=== PATIENT | female | born 1985 | race Caucasian/White ===

== ENCOUNTER → 2016-12-22 | Outpatient (CLI) | payer OTHER ==
--- NOTE | 2016-12-22 16:12 | US ---
EXAMINATION TYPE: US transvaginal DATE OF EXAM: 12/22/2016 COMPARISON: NONE CLINICAL HISTORY: Pelvic Pain R10.2. gen pelvic pain, no cycles, on depo inj, prior ct section TECHNIQUE: Transabdominal (TA) Date of LMP: not for long time EXAM MEASUREMENTS: Uterus: 4.7 x 2.8 x 4.6 cm Endometrial Stripe: 0.4 cm Right Ovary: 1.4 x 0.8 x 1.5 cm Left Ovary: 2.1 x 0.8 x 1.1 cm 1. Uterus: small in size, otherwise wnl 2. Endometrium: seen with some fluid and debris, not thickened 3. Right Ovary: wnl 4. Left Ovary: wnl 5. Bilateral Adnexa: wnl 6. Posterior cul-de-sac: no free fluid seen IMPRESSION: 1. Hypoechoic collection within the endometrial canal could represent some blood. 2. Follicle on the left ovary.
== END | disposition home or self-care (01) ==
LOC: RADUSWWP 12:14
PROVIDERS: ATTEND Obstetrics & Gynecology
DX: N83.8 Other noninflammatory disorders of ovary, fallopian tube and broad ligament (principal); R10.2 Pelvic and perineal pain
CPT/HCPCS: 76830

== ENCOUNTER → 2017-04-09 | Outpatient (CLI) | payer OTHER | END | disposition home or self-care (01) | LOC: LABWHC1 10:49 | PROVIDERS: ATTEND Obstetrics & Gynecology | DX: N91.2 Amenorrhea, unspecified (principal) | CPT/HCPCS: 36415; 84702 ==

== ENCOUNTER → 2017-10-17 | Outpatient (CLI) | payer OTHER | END | disposition home or self-care (01) | LOC: LABWHC1 12:08 | PROVIDERS: ATTEND Obstetrics & Gynecology | DX: N92.6 Irregular menstruation, unspecified (principal) | CPT/HCPCS: 36415; 84702 ==

== ENCOUNTER → 2018-08-01 | Outpatient (CLI) | payer OTHER ==
[2018-08-01 10:00] LABS: Basophils # (A) 0.1 k/uL (0-0.2); Basophils % (A) 1 %; Eosinophils # (A) 0.3 k/uL (0-0.7); Eosinophils % (A) 2 %; HCT 42.7 % (34.0-46.0); Lymphocytes # (A) 3.8 k/uL (1.0-4.8); Lymphocytes % (A) 26 %; MCH 31.5 pg (25.0-35.0); MCHC 32.9 g/dL (31.0-37.0); Mean Platelet Volume 6.8; Monocytes % (A) 7 %; Neutrophils # (A) 9.1 k/uL (1.3-7.7); Neutrophils % (A) 63 %; Platelet Count 294 k/uL (150-450); RBC 4.45 m/uL (3.80-5.40); RDW 13.7 % (11.5-15.5); WBC 14.5 k/uL (3.8-10.6)
== END ==
LOC: LABPAT 09:29
PROVIDERS: ATTEND Obstetrics & Gynecology
DX: Z01.812 Encounter for preprocedural laboratory examination (principal)
CPT/HCPCS: 36415; 85025

== ENCOUNTER 2018-08-05 06:44 | Day surgery (SDC) | payer OTHER ==
[2018-08-01 08:32] VITALS: BMI 26.3
[~2018-08-05 06:44] MED LIST: DEXAMETHASONE SOD PHOSPHATE 10 MG/ML 1 ML VIAL IV ONE; LIDOCAINE 1% 20 ML VIAL (10MG/ML) FOR IV START INTRADERMA PRN; MIDAZOLAM (PF) 2 MG/2 ML VIAL IV PRN; Pre Op ABX Message 1 EACH MISC MISCELLANE ONE; fentaNYL (PF) 50 MCG/ML 2 ML AMP IV PRN
[2018-08-05] MEDS ORDERED: LACTATED RINGERS 1,000 ML IV ONE (07:15)
[2018-08-05] MEDS: ONDANSETRON 4 MG/2 ML VIAL IVP ONE ×2 (07:16→08:57)
--- NOTE | 2018-08-05 07:46 | P.HPOB ---
History of Present Illness H&P Date: 08/05/18 Chief Complaint: family planning 33 year old presents for laparoscopic tubal ligation. Review of Systems All systems: negative Constitutional: Denies chills, Denies fever Eyes: denies blurred vision, denies pain Ears, nose, mouth and throat: Denies headache, Denies sore throat Cardiovascular: Denies chest pain, Denies shortness of breath Respiratory: Denies cough Gastrointestinal: Denies abdominal pain, Denies diarrhea, Denies nausea, Denies vomiting Genitourinary: Denies dysuria, Denies hematuria Musculoskeletal: Denies myalgias Integumentary: Denies pruritus, Denies rash Neurological: Denies numbness, Denies weakness Psychiatric: Denies anxiety, Denies depression Endocrine: Denies fatigue, Denies weight change Past Medical History Past Medical History: Asthma, GERD/Reflux, Seizure Disorder Additional Past Medical History / Comment(s): VOMITING W/ BURNING IN CHEST intermittently, CEREBRAL PALSY, LAST SEIZURE 2015. History of Any Multi-Drug Resistant Organisms: None Reported Past Surgical History: Section, Cholecystectomy, Hernia Repair Additional Past Surgical History / Comment(s): HERNIA X2 Past Anesthesia/Blood Transfusion Reactions: Previous Problems w/ Anesthesia Additional Past Anesthesia/Blood Transfusion Reaction / Comment(s): TAKES AWHILE TO AWAKEN FROM ANESTHESIA,no hx blood transfusion Smoking Status: Current every day smoker - Past Family History Mother Family Medical History: Cancer Additional Family Medical History / Comment(s): BREAST x2 Medications and Allergies Home Medications Medication Instructions Recorded Confirmed Type Citalopram Hydrobromide 40 mg PO HS 08/31/17 08/01/18 History [Citalopram HBr] Folic Acid 1 mg PO DAILY 08/31/17 08/01/18 History Topiramate [Topamax] 50 mg PO QAM 08/31/17 08/01/18 History Topiramate [Topamax] 75 mg PO HS 08/31/17 08/01/18 History Allergies Allergy/AdvReac Type Severity Reaction Status Date / Time codeine AdvReac "GOES Verified 08/01/18 08:24 CRAZY" Exam Osteopathic Statement: *. No significant issues noted on an osteopathic structural exam other than those noted in the History and Physical/Consult. Vital Signs Temp Pulse Resp BP Pulse Ox 05/06/19 07:00 98.0 F 80 18 94/59 96 HEart: RRR Lungs: CTAB Abdomen: soft, nontender Extremeties: neg cory's Assessment and Plan (1) Family planning Current Visit: Yes Status: Acute Code(s): Z30.09 - ENCOUNTER FOR OTH GENERAL CNSL AND ADVICE ON CONTRACEPTION SNOMED Code(s): 996334116
[2018-08-05] MEDS ORDERED: SUCCINYLCHOLINE CHLORIDE 100 MG/5 ML SYR IV ONE (07:57)
[2018-08-05] MEDS ORDERED: fentaNYL (PF) 50 MCG/ML 2 ML AMP ONE (07:57)
[2018-08-05] MEDS ORDERED: KETOROLAC 30 MG/ML 1 ML VIAL ONE (07:57)
[2018-08-05] MEDS ORDERED: PROPOFOL 10 MG/ML 20 ML VIAL IV ONE (07:57)
[2018-08-05] MEDS ORDERED: LIDOCAINE 1% INJ 10MG/ML (20 ML MDV) ONE (07:57)
[2018-08-05] MEDS ORDERED: ROCURONIUM BROMIDE 10 MG/ML 10 ML VIAL IV ONE (07:57)
[2018-08-05] MEDS ORDERED: MIDAZOLAM 2 MG/2 ML VIAL ONE (07:57)
[2018-08-05] MEDS ORDERED: ROPIVACAINE 5 MG/ML 30 ML VIAL MISCELLANE ONE ×2 (08:19)
--- NOTE | 2018-08-05 08:37 | P.OP ---
Date of Procedure: 08/05/18 Preoperative Diagnosis: 1. Family planning Postoperative Diagnosis: 1. Family planning Procedure(s) Performed: Laparoscopic tubal ligation Anesthesia: LC Surgeon: Heavenly Wagner Estimated Blood Loss (ml): 3 IV fluids (ml): 300 Urine output (ml): 20 Pathology: none sent Condition: stable Disposition: PACU Operative Findings: Normal uterus, tubes, ovaries. The uterus is quite malleable. Description of Procedure: Patient was taken to the operating room where general anesthesia was obtained without difficulty. She was prepped and draped in normal sterile fashion in the dorsal lithotomy position, legs placed in the Braydon stirrups. Bladder drained of all urine. Abercrombie speculum placed in the vagina and the anterior lip the cervix was grasped with single-tooth tenaculum. The uterus is sounded to 7 cm and the kroner manipulator was placed. Attention was then turned to the abdomen and gloves were changed. A 10 mm infraumbilical incision was made the scalpel and 10 mm optical trocar was placed under direct visualization. A 5 mm suprapubic Incision was made and a 5 mm optical trocar was placed under direct visualization. Survey of the pelvis revealed normal uterus tubes and ovaries. The left fallopian tube was grasped with a Kleppinger and fulgurated 2-3 cm on this side in the ampullar portion. The right fallopian tube was grasped with a Kleppinger and fulgurated 2-3 cm in the ampullar portion. All instruments were then removed from the abdomen and vagina. The 10 mm infraumbilical incision was closed with 0 Vicryl and the fascial layer and then 4-0 Vicryl in a subcuticular fashion. The 5 mm incision was closed with 4-0 Vicryl in a subcuticular fashion. Patient tolerated procedure well, sponge and instrument counts correct 2 and she was taken to recovery room in stable condition.
[2018-08-05 08:55] VITALS: RESP 16; TEMP 96.9
[2018-08-05] MEDS: LACTATED RINGERS 1,000 ML IV SCH ×3 (09:01→09:18)
[2018-08-05 09:53] VITALS: BP 96/63; PULSE 86
== END 2018-08-05 10:15 | disposition home or self-care (01) ==
LOC: OR 06:44 → EEVIPCON 08:00 → OR 10:15
PROVIDERS: ATTEND Obstetrics & Gynecology
DX: Z30.2 Encounter for sterilization (principal); J45.909 Unspecified asthma, uncomplicated; K21.9 Gastro-esophageal reflux disease without esophagitis; G40.909 Epilepsy, unspecified, not intractable, without status epilepticus; G80.9 Cerebral palsy, unspecified; F17.210 Nicotine dependence, cigarettes, uncomplicated; Z90.49 Acquired absence of other specified parts of digestive tract; Z79.899 Other long term (current) drug therapy; Z88.5 Allergy status to narcotic agent
CPT/HCPCS: 81025; 84703; 58670; J2250; J1100; J2405; J2001; J3010; J1885; J2795; J0330; J2704

== ENCOUNTER 2018-10-17 17:24 | Emergency (ER) | payer OTHER ==
[2018-10-17] MEDS ORDERED: SODIUM CHLORIDE 0.9% 1,000 ML IV STA (19:01)
--- NOTE | 2018-10-17 19:09 | ED ---
Abdominal Pain HPI - General Chief Complaint: Abdominal Pain Stated Complaint: abd pain Time Seen by Provider: 10/17/18 19:00 Source: patient, RN notes reviewed, old records reviewed Mode of arrival: ambulatory Limitations: no limitations - History of Present Illness Initial Comments: This is a 33-year-old female the ER for evaluation. Patient resents today for evaluation of abdominal pain. Epigastric and diffuse abdominal pain and cramping. Mild nausea no vomiting. No fevers. No diarrhea. Does have history of . No significant medical history MD Complaint: abdominal pain -: days(s) Location: diffuse, periumbilical, epigastric Radiation: epigastric, suprapubic Severity: mild Severity scale (1-10): 2 Quality: cramping Improves With: nothing Worsens With: nothing Associated Symptoms: nausea - Related Data Home Medications Medication Instructions Recorded Confirmed Citalopram Hydrobromide 40 mg PO HS 08/31/17 10/17/18 [Citalopram HBr] Folic Acid 1 mg PO DAILY 08/31/17 10/17/18 Topiramate [Topamax] 50 mg PO QAM 08/31/17 10/17/18 Topiramate [Topamax] 75 mg PO HS 08/31/17 10/17/18 Allergies Allergy/AdvReac Type Severity Reaction Status Date / Time codeine AdvReac "GOES Verified 10/17/18 20:22 CRAZY" Review of Systems ROS Statement: Those systems with pertinent positive or pertinent negative responses have been documented in the HPI. ROS Other: All systems not noted in ROS Statement are negative. Past Medical History Past Medical History: Asthma, GERD/Reflux, Seizure Disorder Additional Past Medical History / Comment(s): VOMITING W/ BURNING IN CHEST intermittently, CEREBRAL PALSY, LAST SEIZURE 2015. History of Any Multi-Drug Resistant Organisms: None Reported Past Surgical History: Section, Cholecystectomy, Hernia Repair Additional Past Surgical History / Comment(s): HERNIA X2 Past Anesthesia/Blood Transfusion Reactions: Previous Problems w/ Anesthesia Additional Past Anesthesia/Blood Transfusion Reaction / Comment(s): TAKES AWHILE TO AWAKEN FROM ANESTHESIA,no hx blood transfusion Past Psychological History: Anxiety, Depression Smoking Status: Current every day smoker - Past Family History Mother Family Medical History: Cancer Additional Family Medical History / Comment(s): BREAST x2 General Exam Limitations: no limitations General appearance: alert, in no apparent distress Head exam: Present: atraumatic, normocephalic, normal inspection Eye exam: Present: normal appearance, PERRL, EOMI. Absent: scleral icterus, conjunctival injection, periorbital swelling ENT exam: Present: normal exam, mucous membranes moist Neck exam: Present: normal inspection. Absent: tenderness, meningismus, lymphadenopathy Respiratory exam: Present: normal lung sounds bilaterally. Absent: respiratory distress, wheezes, rales, rhonchi, stridor Cardiovascular Exam: Present: regular rate, normal rhythm, normal heart sounds. Absent: systolic murmur, diastolic murmur, rubs, gallop, clicks GI/Abdominal exam: Present: soft, normal bowel sounds. Absent: distended, tenderness, guarding, rebound, rigid Extremities exam: Present: normal inspection, full ROM, normal capillary refill. Absent: tenderness, pedal edema, joint swelling, calf tenderness Back exam: Present: normal inspection Neurological exam: Present: alert, oriented X3, CN II-XII intact Psychiatric exam: Present: normal affect, normal mood Skin exam: Present: warm, dry, intact, normal color. Absent: rash Course Vital Signs 10/17/18 10/17/18 17:47 20:44 Temperature 98.4 F 97.8 F Pulse Rate 83 88 Respiratory 18 12 Rate Blood Pressure 105/71 122/74 O2 Sat by Pulse 98 96 Oximetry - Reevaluation(s) Reevaluation #1: Medical records reviewed Pain is controlled Medical Decision Making - Medical Decision Making 33 female the ER with nonspecific abdominal pain. CT of abdomen pelvis labwork are normal. Patient can be discharged home - Lab Data Result diagrams: 10/17/18 19:21 10/17/18 19:21 Lab Results 10/17/18 10/17/18 10/17/18 Range/Units 19:21 19:21 19:21 WBC 13.7 H (3.8-10.6) k/uL RBC 4.54 (3.80-5.40) m/uL Hgb 13.4 (11.4-16.0) gm/dL Hct 41.7 (34.0-46.0) % MCV 91.8 (80.0-100.0) fL MCH 29.6 (25.0-35.0) pg MCHC 32.2 (31.0-37.0) g/dL RDW 13.5 (11.5-15.5) % Plt Count 295 (150-450) k/uL Neutrophils % 53 % Lymphocytes % 35 % Monocytes % 6 % Eosinophils % 2 % Basophils % 1 % Neutrophils # 7.3 (1.3-7.7) k/uL Lymphocytes # 4.8 (1.0-4.8) k/uL Monocytes # 0.8 (0-1.0) k/uL Eosinophils # 0.3 (0-0.7) k/uL Basophils # 0.1 (0-0.2) k/uL Sodium 139 (137-145) mmol/L Potassium 3.6 (3.5-5.1) mmol/L Chloride 113 H (98-107) mmol/L Carbon Dioxide 20 L (22-30) mmol/L Anion Gap 6 mmol/L BUN 9 (7-17) mg/dL Creatinine 0.98 (0.52-1.04) mg/dL Est GFR (CKD-EPI)AfAm 87 (>60 ml/min/1.73 sqM) Est GFR (CKD-EPI)NonAf 76 (>60 ml/min/1.73 sqM) Glucose 83 (74-99) mg/dL Plasma Lactic Acid Josef (0.7-2.0) mmol/L Calcium 9.8 (8.4-10.2) mg/dL Total Bilirubin 0.6 (0.2-1.3) mg/dL AST 16 (14-36) U/L ALT 15 (9-52) U/L Alkaline Phosphatase 61 (38-126) U/L Total Protein 7.2 (6.3-8.2) g/dL Albumin 4.3 (3.5-5.0) g/dL Amylase 82 (30-110) U/L Lipase 109 (23-300) U/L Urine Color Urine Appearance (Clear) Urine pH (5.0-8.0) Ur Specific [place] (1.001-1.035) Urine Protein (Negative) Urine Glucose (UA) (Negative) Urine Ketones (Negative) Urine Blood (Negative) Urine Nitrite (Negative) Urine Bilirubin (Negative) Urine Urobilinogen (<2.0) mg/dL Ur Leukocyte Esterase (Negative) Urine RBC (0-5) /hpf Urine WBC (0-5) /hpf Ur Squamous Epith Cells (0-4) /hpf Urine Mucus (None) /hpf Urine HCG, Qual Not Detected (Not Detectd) 10/17/18 10/17/18 Range/Units 19:21 19:21 WBC (3.8-10.6) k/uL RBC (3.80-5.40) m/uL Hgb (11.4-16.0) gm/dL Hct (34.0-46.0) % MCV (80.0-100.0) fL MCH (25.0-35.0) pg MCHC (31.0-37.0) g/dL RDW (11.5-15.5) % Plt Count (150-450) k/uL Neutrophils % % Lymphocytes % % Monocytes % % Eosinophils % % Basophils % % Neutrophils # (1.3-7.7) k/uL Lymphocytes # (1.0-4.8) k/uL Monocytes # (0-1.0) k/uL Eosinophils # (0-0.7) k/uL Basophils # (0-0.2) k/uL Sodium (137-145) mmol/L Potassium (3.5-5.1) mmol/L Chloride (98-107) mmol/L Carbon Dioxide (22-30) mmol/L Anion Gap mmol/L BUN (7-17) mg/dL Creatinine (0.52-1.04) mg/dL Est GFR (CKD-EPI)AfAm (>60 ml/min/1.73 sqM) Est GFR (CKD-EPI)NonAf (>60 ml/min/1.73 sqM) Glucose (74-99) mg/dL Plasma Lactic Acid Josef 0.8 (0.7-2.0) mmol/L Calcium (8.4-10.2) mg/dL Total Bilirubin (0.2-1.3) mg/dL AST (14-36) U/L ALT (9-52) U/L Alkaline Phosphatase (38-126) U/L Total Protein (6.3-8.2) g/dL Albumin (3.5-5.0) g/dL Amylase (30-110) U/L Lipase (23-300) U/L Urine Color Light Yellow Urine Appearance Clear (Clear) Urine pH 5.5 (5.0-8.0) Ur Specific [place] 1.005 (1.001-1.035) Urine Protein Negative (Negative) Urine Glucose (UA) Negative (Negative) Urine Ketones Negative (Negative) Urine Blood Small H (Negative) Urine Nitrite Negative (Negative) Urine Bilirubin Negative (Negative) Urine Urobilinogen <2.0 (<2.0) mg/dL Ur Leukocyte Esterase Negative (Negative) Urine RBC 1 (0-5) /hpf Urine WBC 1 (0-5) /hpf Ur Squamous Epith Cells 3 (0-4) /hpf Urine Mucus Rare H (None) /hpf Urine HCG, Qual (Not Detectd) - Radiology Data Radiology results: report reviewed (CT abdomen pelvis is negative for acute dise ase), image reviewed Disposition Clinical Impression: Abdominal pain Disposition: HOME SELF-CARE Condition: Good Instructions (If sedation given, give patient instructions): Abdominal Pain (ED) Is patient prescribed a controlled substance at d/c from ED?: No Referrals: Rich Larose MD [Primary Care Provider] - 1-2 days
[2018-10-17 19:31] LABS: Basophils # (A) 0.1 k/uL (0-0.2); Basophils % (A) 1 %; Eosinophils # (A) 0.3 k/uL (0-0.7); Eosinophils % (A) 2 %; HCT 41.7 % (34.0-46.0); HGB 13.4 gm/dL (11.4-16.0); Lymphocytes # (A) 4.8 k/uL (1.0-4.8); Lymphocytes % (A) 35 %; MCH 29.6 pg (25.0-35.0); MCHC 32.2 g/dL (31.0-37.0); MCV 91.8 fL (80.0-100.0); Mean Platelet Volume 6.5; Monocytes # (A) 0.8 k/uL (0-1.0); Monocytes % (A) 6 %; Neutrophils # (A) 7.3 k/uL (1.3-7.7); Neutrophils % (A) 53 %; Platelet Count 295 k/uL (150-450); RBC 4.54 m/uL (3.80-5.40); RDW 13.5 % (11.5-15.5); WBC 13.7 k/uL (3.8-10.6)
[2018-10-17 19:35] LABS: Color,Urine Light Yellow
[2018-10-17 19:36] LABS: Appearance,Urine Clear (Clear); Bilirubin,Urine Negative (Negative); Blood,Urine Small (Negative); Glucose,Urine (UA) Negative (Negative); Ketones,Urine Negative (Negative); Leukocyte Esterase,Urine Negative (Negative); Mucus,Urine Rare /hpf; Nitrite,Urine Negative (Negative); PH, Urine 5.5 (5.0-8.0); Protein,Urine Negative (Negative); RBC,Urine 1 /hpf (0-5); Specific Gravity,Urine 1.005 (1.001-1.035); Squamous Epithelial Cell,Urine 3 /hpf (0-4); Urobilinogen,Urine <2.0 mg/dL (<2.0); WBC,Urine 1 /hpf (0-5)
[2018-10-17 19:44] LABS: Albumin 4.3 g/dL (3.5-5.0); Calcium 9.8 mg/dL (8.4-10.2); Potassium 3.6 mmol/L (3.5-5.1); Total Bilirubin 0.6 mg/dL (0.2-1.3); Total Protein 7.2 g/dL (6.3-8.2)
--- NOTE | 2018-10-17 20:18 | CT ---
EXAMINATION TYPE: CT abdomen pelvis wo con DATE OF EXAM: 10/17/2018 COMPARISON: None HISTORY: Abdominal pain and nausea CT DLP: 360.5 mGycm Automated exposure control for dose reduction was used. TECHNIQUE: Helical acquisition of images was performed from the lung bases through the pelvis. FINDINGS: Lung bases are clear. There is no pleural effusion. Heart size is normal. There is no pericardial eff usion. Liver appears normal. Bile ducts are not dilated. Stomach appears normal. Spleen is absent. There are clips from cholecystectomy. There is no pancreatic mass. There is no adrenal mass. Kidneys show satisfactory contrast opacification. There is no hydronephrosi s. Ureters are not dilated. Bladder distends smoothly. There is no inguinal hernia. There is no evide nce of a pelvic mass. Uterus is retroverted. There is no free fluid in the pelvis. There is no mesent nicki edema. There is no sign of a bowel obstruction. Appendix is not definitely seen. There is no sig n of thickened appendix. There is no evidence of bowel obstruction. There is no ascites or free air. Lumbar vertebra have normal spacing and alignment. Posterior elements are intact. Bony pelvis appears intact. IMPRESSION: NEGATIVE CT SCAN ABDOMEN AND PELVIS.
[2018-10-17 20:45] VITALS: BP 122/74; PULSE 88; RESP 12; TEMP 97.8
== END 2018-10-17 20:56 | disposition home or self-care (01) ==
LOC: EC 17:24
DX: R10.84 Generalized abdominal pain (principal); R11.0 Nausea; G40.909 Epilepsy, unspecified, not intractable, without status epilepticus; F32.9 Major depressive disorder, single episode, unspecified; F41.9 Anxiety disorder, unspecified; F17.200 Nicotine dependence, unspecified, uncomplicated; Z79.899 Other long term (current) drug therapy; Z88.5 Allergy status to narcotic agent; Z90.49 Acquired absence of other specified parts of digestive tract
CPT/HCPCS: 36415; 74176; 80053; 81001; 81025; 82150; 83605; 83690; 85025; 87086; 96360; 99284

== ENCOUNTER 2018-11-05 19:43 | Emergency (ER) | payer OTHER ==
[2018-11-05] MEDS ORDERED: SODIUM CHLORIDE 0.9% 500 ML 500 ML IV STA (20:49)
[2018-11-05 21:12] LABS: ALT 11 U/L (9-52); AST 12 U/L (14-36); African American GFR (CKD) >90 (>60 ml/min/1.73 sqM); Albumin 3.6 g/dL (3.5-5.0); Alkaline Phosphatase 54 U/L (38-126); Amylase 67 U/L (30-110); Anion Gap 8 mmol/L; Blood Urea Nitrogen 11 mg/dL (7-17); Calcium 9.1 mg/dL (8.4-10.2); Carbon Dioxide 20 mmol/L (22-30); Chloride 112 mmol/L (98-107); Glucose 113 mg/dL (74-99); Potassium 3.5 mmol/L (3.5-5.1); Sodium 140 mmol/L (137-145); Total Bilirubin 0.5 mg/dL (0.2-1.3); Total Protein 6.3 g/dL (6.3-8.2)
[2018-11-05 21:21] LABS: Appearance,Urine Cloudy (Clear); Bilirubin,Urine Negative (Negative); Blood,Urine Moderate (Negative); Calcium Oxalate Crystals,Urine Rare /hpf; Color,Urine Yellow; Glucose,Urine (UA) Negative (Negative); Ketones,Urine Trace (Negative); Leukocyte Esterase,Urine Negative (Negative); Mucus,Urine Moderate /hpf; Nitrite,Urine Negative (Negative); Protein,Urine Trace (Negative); RBC,Urine 17 /hpf (0-5); Specific Gravity,Urine 1.028 (1.001-1.035); Squamous Epithelial Cell,Urine 9 /hpf (0-4); WBC,Urine 2 /hpf (0-5)
[2018-11-05 21:22] LABS: Basophils # (A) 0.1 k/uL (0-0.2); Basophils % (A) 0 %; Eosinophils # (A) 0.2 k/uL (0-0.7); Eosinophils % (A) 1 %; HGB 12.9 gm/dL (11.4-16.0); Lymphocytes # (A) 2.6 k/uL (1.0-4.8); Lymphocytes % (A) 11 %; MCH 31.2 pg (25.0-35.0); MCHC 33.2 g/dL (31.0-37.0); Mean Platelet Volume 7.3; Monocytes # (A) 1.4 k/uL (0-1.0); Monocytes % (A) 6 %; Neutrophils # (A) 18.8 k/uL (1.3-7.7); Neutrophils % (A) 81 %; Platelet Count 278 k/uL (150-450); RBC 4.14 m/uL (3.80-5.40); RDW 14.9 % (11.5-15.5); WBC 23.4 k/uL (3.8-10.6)
--- NOTE | 2018-11-05 22:18 | CT ---
EXAMINATION TYPE: CT abdomen pelvis w con DATE OF EXAM: 11/05/2018 COMPARISON: 10/17/2018 HISTORY: abdominal pain and nausea CT DLP: 581.4 mGycm Automated exposure control for dose reduction was used. TECHNIQUE: Helical acquisition of images was performed from the lung bases through the pelvis. CONTRAST: Performed without Oral Contrast and with IV Contrast, patient injected with 100 mL of Isovu e 300. FINDINGS: LUNG BASES: No significant abnormality is appreciated. LIVER/GB: No significant abnormality is appreciated. PANCREAS: No significant abnormality is seen. SPLEEN: No significant abnormality is seen. ADRENALS: No significant abnormality is seen. KIDNEYS: No significant abnormality is seen. FREE AIR: No free air is visualized. RETROPERITONEAL ADENOPATHY: None visualized REPRODUCTIVE ORGANS: No significant abnormality is seen URINARY BLADDER: No significant abnormality is seen. PELVIC ADENOPATHY: None visualized. OSSEOUS STRUCTURES: No significant abnormality is seen. BOWEL: No significant abnormality is seen. OTHER: No acute vascular findings. IMPRESSION: NO ACUTE PROCESS.
[2018-11-05] MEDS ORDERED: KETOROLAC 30 MG/ML 1 ML VIAL IVP STA (22:39)
[2018-11-05] MEDS ORDERED: SODIUM CHLORIDE 0.9% 1,000 ML IV STA (22:57)
[2018-11-06 00:14] VITALS: BP 113/77
--- NOTE | 2018-11-06 00:19 | ED ---
General Adult HPI - General Chief complaint: Abdominal Pain Stated complaint: Back pain, nausea, abd pain Time Seen by Provider: 11/05/18 19:53 Source: patient, RN notes reviewed Mode of arrival: ambulatory Limitations: no limitations - History of Present Illness Initial comments: 33-year-old female presents to the emergency department for multiple complaints. Patient's main complaint is abdominal pain. States she has had right lower abdominal pain for about 3 days. Patient describes this as wrapping around her right side as well. States that she is having nausea with this for the past 2 days but no vomiting. States that today she started having about 2 episodes of diarrhea. Patient states she had a 100.3 fever at home. Denies any vaginal discharge. Denies any dysuria. Denies any concern for STDs. Patient has no other complaints at this time including shortness of breath, chest pain, nausea or vomiting, headache, or visual changes. - Related Data Home Medications Medication Instructions Recorded Confirmed Citalopram Hydrobromide 40 mg PO HS 08/31/17 11/05/18 [Citalopram HBr] Folic Acid 1 mg PO DAILY 08/31/17 11/05/18 Topiramate [Topamax] 50 mg PO QAM 08/31/17 11/05/18 Topiramate [Topamax] 75 mg PO HS 08/31/17 11/05/18 Previous Rx's Medication Instructions Recorded Ondansetron [Zofran ODT] 4 mg PO Q8HR PRN #15 tab 11/06/18 Allergies Allergy/AdvReac Type Severity Reaction Status Date / Time codeine AdvReac "GOES Verified 11/05/18 20:21 CRAZY" Review of Systems ROS Statement: Those systems with pertinent positive or pertinent negative responses have been documented in the HPI. ROS Other: All systems not noted in ROS Statement are negative. Past Medical History Past Medical History: Asthma, GERD/Reflux, Seizure Disorder Additional Past Medical History / Comment(s): VOMITING W/ BURNING IN CHEST intermittently, CEREBRAL PALSY, LAST SEIZURE 2016. History of Any Multi-Drug Resistant Organisms: None Reported Past Surgical History: Section, Cholecystectomy, Hernia Repair Additional Past Surgical History / Comment(s): HERNIA X2 Past Anesthesia/Blood Transfusion Reactions: Previous Problems w/ Anesthesia Additional Past Anesthesia/Blood Transfusion Reaction / Comment(s): TAKES AWHILE TO AWAKEN FROM ANESTHESIA,no hx blood transfusion Past Psychological History: Anxiety, Depression Smoking Status: Current every day smoker Past Alcohol Use History: None Reported Past Drug Use History: None Reported - Past Family History Mother Family Medical History: Cancer Additional Family Medical History / Comment(s): BREAST x2 General Exam Limitations: no limitations General appearance: alert, in no apparent distress Head exam: Present: atraumatic, normocephalic, normal inspection Eye exam: Present: normal appearance, PERRL, EOMI. Absent: scleral icterus, conjunctival injection, periorbital swelling ENT exam: Present: normal exam, mucous membranes moist Neck exam: Present: normal inspection, full ROM. Absent: tenderness, meningismus, lymphadenopathy Respiratory exam: Present: normal lung sounds bilaterally. Absent: respiratory distress, wheezes, rales, rhonchi, stridor Cardiovascular Exam: Present: regular rate, normal rhythm, normal heart sounds. Absent: systolic murmur, diastolic murmur, rubs, gallop, clicks GI/Abdominal exam: Present: soft, tenderness (Right lower quadrant tenderness and suprapubic tenderness, no guarding, no left abdominal tenderness.), normal bowel sounds. Absent: distended, guarding, rebound, rigid External exam: Present: normal external exam. Absent: erythema, swelling, lesions, lacerations, ecchymosis Speculum exam: Present: normal speculum exam. Absent: erythema, vaginal discharge, cervical discharge, vaginal bleeding, foreign body, tissue, laceration By manual exam: Present: normal by manual exam. Absent: cervical motion tenderness, adnexal tenderness, adnexal mass, uterine enlargement, uterine tenderness Back exam: Absent: CVA tenderness (R), CVA tenderness (L) Neurological exam: Present: alert Psychiatric exam: Present: normal affect, normal mood Course Vital Signs 11/05/18 11/05/18 11/05/18 19:45 20:35 21:10 Temperature 99.0 F Pulse Rate 109 H Respiratory 18 18 17 Rate Blood Pressure 97/66 82/48 87/55 O2 Sat by Pulse 95 95 97 Oximetry 11/06/18 11/06/18 00:14 00:20 Temperature 98.9 F Pulse Rate 73 Respiratory 18 Rate Blood Pressure 113/77 O2 Sat by Pulse 99 Oximetry Medical Decision Making - Medical Decision Making Mucosa 33 old female presents for abdominal pain 3 days. Patient was previously seen for similar complaints and had a negative CAT scan. Vitals stable presentation. On exam patient is well-appearing. She does have right lower quadrant tenderness without any guarding. Pelvic exam is unremarkable. No cervical motion tenderness. CBC does show a white count of 23. CMP unremarkable. Urine does not show any evidence of infection. Trichomonas is negative. CT abdomen and pelvis with contrast shows no acute process. Patient likely has a viral gastroenteritis given nausea and diarrhea. Leukocytosis is likely secondary to this. Patient was hypotensive was given fluids which did normalize her blood pressure. Patient requesting discharge. She is well- appearing at this time. It pain is improved. She'll be discharged home. She is to follow-up with primary care. Strict return parameters given. - Lab Data Result diagrams: 11/05/18 20:31 11/05/18 20:31 Lab Results 11/05/18 11/05/18 11/05/18 Range/Units 20:23 20:23 20:23 WBC (3.8-10.6) k/uL RBC (3.80-5.40) m/uL Hgb (11.4-16.0) gm/dL Hct (34.0-46.0) % MCV (80.0-100.0) fL MCH (25.0-35.0) pg MCHC (31.0-37.0) g/dL RDW (11.5-15.5) % Plt Count (150-450) k/uL Neutrophils % % Lymphocytes % % Monocytes % % Eosinophils % % Basophils % % Neutrophils # (1.3-7.7) k/uL Lymphocytes # (1.0-4.8) k/uL Monocytes # (0-1.0) k/uL Eosinophils # (0-0.7) k/uL Basophils # (0-0.2) k/uL Sodium (137-145) mmol/L Potassium (3.5-5.1) mmol/L Chloride (98-107) mmol/L Carbon Dioxide (22-30) mmol/L Anion Gap mmol/L BUN (7-17) mg/dL Creatinine (0.52-1.04) mg/dL Est GFR (CKD-EPI)AfAm (>60 ml/min/1.73 sqM) Est GFR (CKD-EPI)NonAf (>60 ml/min/1.73 sqM) Glucose (74-99) mg/dL Plasma Lactic Acid Josef (0.7-2.0) mmol/L Calcium (8.4-10.2) mg/dL Total Bilirubin (0.2-1.3) mg/dL AST (14-36) U/L ALT (9-52) U/L Alkaline Phosphatase (38-126) U/L Total Protein (6.3-8.2) g/dL Albumin (3.5-5.0) g/dL Amylase (30-110) U/L Lipase (23-300) U/L Urine Color Yellow Urine Appearance Cloudy H (Clear) Urine pH 6.0 (5.0-8.0) Ur Specific [place] 1.028 (1.001-1.035) Urine Protein Trace H (Negative) Urine Glucose (UA) Negative (Negative) Urine Ketones Trace H (Negative) Urine Blood Moderate H (Negative) Urine Nitrite Negative (Negative) Urine Bilirubin Negative (Negative) Urine Urobilinogen 3.0 (<2.0) mg/dL Ur Leukocyte Esterase Negative (Negative) Urine RBC 17 H (0-5) /hpf Urine WBC 2 (0-5) /hpf Ur Squamous Epith Cells 9 H (0-4) /hpf Calcium Oxalate Crystal Rare H (None) /hpf Urine Mucus Moderate H (None) /hpf Urine HCG, Qual Not Detected (Not Detectd) Trichomonas Ag (Rapid) Negative (Negative) 11/05/18 11/05/18 11/05/18 Range/Units 20:31 20:31 20:31 WBC 23.4 H (3.8-10.6) k/uL RBC 4.14 (3.80-5.40) m/uL Hgb 12.9 (11.4-16.0) gm/dL Hct 39.0 (34.0-46.0) % MCV 94.0 (80.0-100.0) fL MCH 31.2 (25.0-35.0) pg MCHC 33.2 (31.0-37.0) g/dL RDW 14.9 (11.5-15.5) % Plt Count 278 (150-450) k/uL Neutrophils % 81 % Lymphocytes % 11 % Monocytes % 6 % Eosinophils % 1 % Basophils % 0 % Neutrophils # 18.8 H (1.3-7.7) k/uL Lymphocytes # 2.6 (1.0-4.8) k/uL Monocytes # 1.4 H (0-1.0) k/uL Eosinophils # 0.2 (0-0.7) k/uL Basophils # 0.1 (0-0.2) k/uL Sodium 140 (137-145) mmol/L Potassium 3.5 (3.5-5.1) mmol/L Chloride 112 H (98-107) mmol/L Carbon Dioxide 20 L (22-30) mmol/L Anion Gap 8 mmol/L BUN 11 (7-17) mg/dL Creatinine 0.94 (0.52-1.04) mg/dL Est GFR (CKD-EPI)AfAm >90 (>60 ml/min/1.73 sqM) Est GFR (CKD-EPI)NonAf 80 (>60 ml/min/1.73 sqM) Glucose 113 H (74-99) mg/dL Plasma Lactic Acid Josef 1.1 (0.7-2.0) mmol/L Calcium 9.1 (8.4-10.2) mg/dL Total Bilirubin 0.5 (0.2-1.3) mg/dL AST 12 L (14-36) U/L ALT 11 (9-52) U/L Alkaline Phosphatase 54 (38-126) U/L Total Protein 6.3 (6.3-8.2) g/dL Albumin 3.6 (3.5-5.0) g/dL Amylase 67 (30-110) U/L Lipase 79 (23-300) U/L Urine Color Urine Appearance (Clear) Urine pH (5.0-8.0) Ur Specific [place] (1.001-1.035) Urine Protein (Negative) Urine Glucose (UA) (Negative) Urine Ketones (Negative) Urine Blood (Negative) Urine Nitrite (Negative) Urine Bilirubin (Negative) Urine Urobilinogen (<2.0) mg/dL Ur Leukocyte Esterase (Negative) Urine RBC (0-5) /hpf Urine WBC (0-5) /hpf Ur Squamous Epith Cells (0-4) /hpf Calcium Oxalate Crystal (None) /hpf Urine Mucus (None) /hpf Urine HCG, Qual (Not Detectd) Trichomonas Ag (Rapid) (Negative) Disposition Clinical Impression: Nausea, Diarrhea, Abdominal pain Disposition: HOME SELF-CARE Condition: Good Instructions (If sedation given, give patient instructions): Abdominal Pain (ED) Additional Instructions: Please follow up with primary care in 1-2 days. Drink any of fluids. Take Zofran as needed for nausea. Please return here to the emergency department if you have any worsening symptoms. Prescriptions: Ondansetron [Zofran ODT] 4 mg PO Q8HR PRN #15 tab PRN Reason: Nausea Is patient prescribed a controlled substance at d/c from ED?: No Referrals: Rich Larose MD [Primary Care Provider] - 1-2 days Time of Disposition: 00:18
[2018-11-06 00:22] VITALS: PULSE 73; RESP 18; TEMP 98.9
[2018-11-07 08:04] LABS: C. trachomatis,PCR Negative (Neg,Equiv); Chlamydia trachomatis Source Vagina
[2018-11-07 13:49] LABS: N. gonorrhoeae,PCR Negative (Neg,Equiv); Neisseria Source Vagina
== END 2018-11-06 00:28 | disposition home or self-care (01) ==
LOC: EC 19:43
DX: R10.31 Right lower quadrant pain (principal); R11.0 Nausea; R19.7 Diarrhea, unspecified; I95.9 Hypotension, unspecified; G40.909 Epilepsy, unspecified, not intractable, without status epilepticus; F32.9 Major depressive disorder, single episode, unspecified; F41.9 Anxiety disorder, unspecified; F17.200 Nicotine dependence, unspecified, uncomplicated; Z88.5 Allergy status to narcotic agent; Z79.899 Other long term (current) drug therapy; Z87.19 Personal history of other diseases of the digestive system; Z90.49 Acquired absence of other specified parts of digestive tract
CPT/HCPCS: 36415; 80053; 82150; 83605; 83690; 85025; 81001; 81025; 87808; 87491; 87591; 74177; 99284; 96374; 96361 ×2; J1885; Q9967

== ENCOUNTER → 2018-12-13 | Outpatient (CLI) | payer OTHER ==
--- NOTE | 2018-12-13 15:03 | US ---
EXAMINATION TYPE: US transvaginal DATE OF EXAM: 12/13/2018 COMPARISON: NONE CLINICAL HISTORY: R10.2 PELVIC PAIN. Pain TECHNIQUE: Transvaginal (TV Date of LMP: 11/17/2018 EXAM MEASUREMENTS: Uterus: 4.8 x 2.7 x 4.0 cm Endometrial Stripe: .4 cm Right Ovary: 1.9 x 1.2 x 1.4 cm 1. Uterus: Anteverted Fluid seen in the lower uterine segment and cervical canal measuring 1.6 x . 5 x .9cm. 2. Endometrium: wnl 3. Right Ovary: Dominant anechoic simple appearing follicle 1.2 x .8 x 1.0cm. 4. Left Ovary: Obscured by overlying bowel gas 5. Bilateral Adnexa: wnl 6. Posterior cul-de-sac: wnl IMPRESSION: 1. Fluid is seen within the lower uterine segment and cervical canal that could be related to phase o f menses or less likely cervical stenosis or spontaneous . Correlate with beta-hCG. 2. Obscuration of the left ovary by overlying bowel gas.
== END | disposition home or self-care (01) ==
LOC: RADUSWWP 11:45
PROVIDERS: ATTEND Obstetrics & Gynecology
DX: R10.2 Pelvic and perineal pain (principal)
CPT/HCPCS: 76830

== ENCOUNTER → 2019-03-05 | Outpatient (CLI) | payer OTHER ==
[2019-03-05 18:18] LABS: Estradiol 81.9 pg/mL; Follicle Stimulating Hormone 2.4 mIU/mL; Luteinizing Hormone 0.6 mIU/mL
== END | disposition home or self-care (01) ==
LOC: LABWHC1 10:28
PROVIDERS: ATTEND Obstetrics & Gynecology
DX: N91.2 Amenorrhea, unspecified (principal)
CPT/HCPCS: 36415; 82670; 83001; 83002; 84144; 84403

== ENCOUNTER 2019-04-23 17:19 | Emergency (ER) | payer OTHER ==
[2019-04-23 17:24] VITALS: RESP 18; TEMP 97.7
[2019-04-23] MEDS ORDERED: SODIUM CHLORIDE 0.9% 500 ML 500 ML IV STA (17:33)
--- NOTE | 2019-04-23 17:48 | ED ---
General Adult HPI - General Chief complaint: Abdominal Pain Stated complaint: abd pain Time Seen by Provider: 04/23/19 17:28 Source: patient, RN notes reviewed, old records reviewed Mode of arrival: ambulatory Limitations: no limitations - History of Present Illness Initial comments: 33-year-old female patient past history significant for tubal ligation, c holecystectomy, presents to ED for chief complaint of bilateral flank pain. Has been ongoing for the last 2 weeks. Reports that she has had some nausea without emesis. Denies any chance of being . Denies any dysuria. Denies any other complaints. Systemic: Pt denies fatigue, fever/chills, rash. Pt denies weakness, night sweats, weight loss. Neuro: Pt denies headache, visual disturbances, syncope or pre-syncope. HEENT: Pt denies ocular discharge or irritation, otalgia, rhinorrhea, pharyngitis or notable lymphadenopathy. Cardiopulmonary: Pt denies chest pain, SOB, heart palpitations, dyspnea on exertion. Abdominal/GI: Pt denies abdominal pain, n/v/d. : Pt denies dysuria, burning w/ urination, frequency/urgency. Denies new onset urinary or bowel incontinence. MSK: Pt denies myalgia, loss of strength or function in extremities. Neuro: Pt denies new onset weakness, paresthesias. - Related Data Home Medications Medication Instructions Recorded Confirmed Citalopram Hydrobromide 40 mg PO HS 08/31/17 11/05/18 [Citalopram HBr] Folic Acid 1 mg PO DAILY 08/31/17 11/05/18 Topiramate [Topamax] 50 mg PO QAM 08/31/17 11/05/18 Topiramate [Topamax] 75 mg PO HS 08/31/17 11/05/18 Previous Rx's Medication Instructions Recorded Ondansetron [Zofran ODT] 4 mg PO Q8HR PRN #15 tab 11/06/18 Allergies Allergy/AdvReac Type Severity Reaction Status Date / Time codeine AdvReac "GOES Verified 04/23/19 17:20 CRAZY" Review of Systems ROS Statement: Those systems with pertinent positive or pertinent negative responses have been documented in the HPI. ROS Other: All systems not noted in ROS Statement are negative. Past Medical History Past Medical History: Asthma, GERD/Reflux, Seizure Disorder Additional Past Medical History / Comment(s): VOMITING W/ BURNING IN CHEST intermittently, CEREBRAL PALSY, LAST SEIZURE 2016. History of Any Multi-Drug Resistant Organisms: None Reported Past Surgical History: Section, Cholecystectomy, Hernia Repair Additional Past Surgical History / Comment(s): HERNIA X2 Past Anesthesia/Blood Transfusion Reactions: Previous Problems w/ Anesthesia Additional Past Anesthesia/Blood Transfusion Reaction / Comment(s): TAKES AWHILE TO AWAKEN FROM ANESTHESIA,no hx blood transfusion Past Psychological History: Anxiety, Depression Smoking Status: Current every day smoker Past Alcohol Use History: None Reported Past Drug Use History: None Reported - Past Family History Mother Family Medical History: Cancer Additional Family Medical History / Comment(s): BREAST x2 General Exam - General Exam Comments Initial Comments: Constitutional: NAD, AOX3, Pt has pleasant affect. HEENT: NC/AT, trachea midline, neck supple, no lymphadenopathy. Posterior pharynx non erythematous, without exudates. External ears appear normal, without discharge. Mucous membranes moist. Eyes PERRLA, EOM intact. There is no scleral icterus. No pallor noted. Cardiopulmonary: RRR, no murmurs, rubs or gallops, no JVD noted. Lungs CTAB in anterior and posterior hoover. No peripheral edema. Abdominal exam: Abdomen soft and non-distended. Flank mildly tender to palpation. Bowel sounds active in LLQ. No hepatosplenomegaly. No ecchymosis Neuro: CN II-XII grossly intact. No nuchal rigidity. No raccon eyes, no koenig sign, no hemotympanum. No cervical spinal tenderness. MSK: No posterior calf tenderness bilaterally, homans sign negative bilaterally. Posterior tibialis and radial pulse +2 bilaterally. Sensation intact in upper and lower extremities. Full active ROM in upper and lower extremities, 5/5 stregnth. Limitations: no limitations Course Vital Signs 04/23/19 04/23/19 17:21 19:58 Temperature 97.7 F Pulse Rate 72 81 Respiratory 18 18 Rate Blood Pressure 113/73 101/61 O2 Sat by Pulse 98 99 Oximetry Medical Decision Making - Medical Decision Making 33-year-old female patient past history significant for tubal ligation, cholecystectomy, presents to ED for chief complaint of bilateral flank pain. Has been ongoing for the last 2 weeks. Reports that she has had some nausea without emesis. Denies any chance of being . Denies any dysuria. Denies any other complaints. Pt VSS, afebrile. Physical exam displayed: Abdomen soft and non-distended. Flank mildly tender to palpation. Laboratory investiga tions are overall non-impressive. Small amount of blood, 6 red blood cells. 16 squamous cells. On further review patient does admit that she has been having diarrhea, nausea the last 5 days. The patient is most likely experiencing a viral gastroenteritis-like syndrome. Patient will follow-up with primary care provider tomorrow. Encouraged to continue to drink lots of fluids and use Tylenol and Motrin as needed for pain. Return precautions were discussed. Case discussed with Dr. Ziegler. - Lab Data Result diagrams: 04/23/19 17:53 04/23/19 17:53 Lab Results 04/23/19 04/23/19 04/23/19 Range/Units 17:40 17:40 17:53 WBC 11.7 H (3.8-10.6) k/uL RBC 4.27 (3.80-5.40) m/uL Hgb 13.2 (11.4-16.0) gm/dL Hct 40.1 (34.0-46.0) % MCV 94.1 (80.0-100.0) fL MCH 31.0 (25.0-35.0) pg MCHC 33.0 (31.0-37.0) g/dL RDW 13.5 (11.5-15.5) % Plt Count 247 (150-450) k/uL Neutrophils % 52 % Lymphocytes % 37 % Monocytes % 7 % Eosinophils % 2 % Basophils % 1 % Neutrophils # 6.1 (1.3-7.7) k/uL Lymphocytes # 4.3 (1.0-4.8) k/uL Monocytes # 0.8 (0-1.0) k/uL Eosinophils # 0.3 (0-0.7) k/uL Basophils # 0.1 (0-0.2) k/uL Sodium (137-145) mmol/L Potassium (3.5-5.1) mmol/L Chloride (98-107) mmol/L Carbon Dioxide (22-30) mmol/L Anion Gap mmol/L BUN (7-17) mg/dL Creatinine (0.52-1.04) mg/dL Est GFR (CKD-EPI)AfAm (>60 ml/min/1.73 sqM) Est GFR (CKD-EPI)NonAf (>60 ml/min/1.73 sqM) Glucose (74-99) mg/dL Plasma Lactic Acid Josef (0.7-2.0) mmol/L Calcium (8.4-10.2) mg/dL Total Bilirubin (0.2-1.3) mg/dL AST (14-36) U/L ALT (4-34) U/L Alkaline Phosphatase (38-126) U/L Total Protein (6.3-8.2) g/dL Albumin (3.5-5.0) g/dL Lipase (23-300) U/L Urine Color Yellow Urine Appearance Cloudy H (Clear) Urine pH 6.0 (5.0-8.0) Ur Specific [place] 1.016 (1.001-1.035) Urine Protein Negative (Negative) Urine Glucose (UA) Negative (Negative) Urine Ketones Negative (Negative) Urine Blood Small H (Negative) Urine Nitrite Negative (Negative) Urine Bilirubin Negative (Negative) Urine Urobilinogen 2.0 (<2.0) mg/dL Ur Leukocyte Esterase Negative (Negative) Urine RBC 6 H (0-5) /hpf Urine WBC <1 (0-5) /hpf Ur Squamous Epith Cells 16 H (0-4) /hpf Urine Bacteria Rare H (None) /hpf Urine Mucus Rare H (None) /hpf Urine HCG, Qual Not Detected (Not Detectd) 04/23/19 04/23/19 Range/Units 17:53 17:53 WBC (3.8-10.6) k/uL RBC (3.80-5.40) m/uL Hgb (11.4-16.0) gm/dL Hct (34.0-46.0) % MCV (80.0-100.0) fL MCH (25.0-35.0) pg MCHC (31.0-37.0) g/dL RDW (11.5-15.5) % Plt Count (150-450) k/uL Neutrophils % % Lymphocytes % % Monocytes % % Eosinophils % % Basophils % % Neutrophils # (1.3-7.7) k/uL Lymphocytes # (1.0-4.8) k/uL Monocytes # (0-1.0) k/uL Eosinophils # (0-0.7) k/uL Basophils # (0-0.2) k/uL Sodium 141 (137-145) mmol/L Potassium 4.0 (3.5-5.1) mmol/L Chloride 115 H (98-107) mmol/L Carbon Dioxide 20 L (22-30) mmol/L Anion Gap 6 mmol/L BUN 12 (7-17) mg/dL Creatinine 0.88 (0.52-1.04) mg/dL Est GFR (CKD-EPI)AfAm >90 (>60 ml/min/1.73 sqM) Est GFR (CKD-EPI)NonAf 87 (>60 ml/min/1.73 sqM) Glucose 89 (74-99) mg/dL Plasma Lactic Acid Josef 1.0 (0.7-2.0) mmol/L Calcium 9.1 (8.4-10.2) mg/dL Total Bilirubin 0.5 (0.2-1.3) mg/dL AST 22 (14-36) U/L ALT 10 (4-34) U/L Alkaline Phosphatase 56 (38-126) U/L Total Protein 6.4 (6.3-8.2) g/dL Albumin 3.7 (3.5-5.0) g/dL Lipase 136 (23-300) U/L Urine Color Urine Appearance (Clear) Urine pH (5.0-8.0) Ur Specific [place] (1.001-1.035) Urine Protein (Negative) Urine Glucose (UA) (Negative) Urine Ketones (Negative) Urine Blood (Negative) Urine Nitrite (Negative) Urine Bilirubin (Negative) Urine Urobilinogen (<2.0) mg/dL Ur Leukocyte Esterase (Negative) Urine RBC (0-5) /hpf Urine WBC (0-5) /hpf Ur Squamous Epith Cells (0-4) /hpf Urine Bacteria (None) /hpf Urine Mucus (None) /hpf Urine HCG, Qual (Not Detectd) Disposition Clinical Impression: Flank pain Disposition: HOME SELF-CARE Condition: Stable Instructions (If sedation given, give patient instructions): Flank Pain (ED) Additional Instructions: Follow-up with primary care provider tomorrow. Return to ER if condition worsens in any way. Is patient prescribed a controlled substance at d/c from ED?: No Referrals: Rich Larose MD [Primary Care Provider] - 1-2 days
[2019-04-23 18:15] LABS: Basophils # (A) 0.1 k/uL (0-0.2); Basophils % (A) 1 %; Eosinophils # (A) 0.3 k/uL (0-0.7); Eosinophils % (A) 2 %; HCT 40.1 % (34.0-46.0); HGB 13.2 gm/dL (11.4-16.0); Lymphocytes # (A) 4.3 k/uL (1.0-4.8); Lymphocytes % (A) 37 %; MCV 94.1 fL (80.0-100.0); Mean Platelet Volume 7.4; Monocytes # (A) 0.8 k/uL (0-1.0); Monocytes % (A) 7 %; Neutrophils # (A) 6.1 k/uL (1.3-7.7); Neutrophils % (A) 52 %; Platelet Count 247 k/uL (150-450); RBC 4.27 m/uL (3.80-5.40); RDW 13.5 % (11.5-15.5); WBC 11.7 k/uL (3.8-10.6)
[2019-04-23 18:46] LABS: Appearance,Urine Cloudy (Clear); Bacteria,Urine Rare /hpf; Bilirubin,Urine Negative (Negative); Blood,Urine Small (Negative); Color,Urine Yellow; Glucose,Urine (UA) Negative (Negative); Ketones,Urine Negative (Negative); Leukocyte Esterase,Urine Negative (Negative); Mucus,Urine Rare /hpf; Nitrite,Urine Negative (Negative); Protein,Urine Negative (Negative); RBC,Urine 6 /hpf (0-5); Specific Gravity,Urine 1.016 (1.001-1.035); Squamous Epithelial Cell,Urine 16 /hpf (0-4); WBC,Urine <1 /hpf (0-5)
[2019-04-23 19:01] LABS: ALT 10 U/L (4-34); AST 22 U/L (14-36); African American GFR (CKD) >90 (>60 ml/min/1.73 sqM); Albumin 3.7 g/dL (3.5-5.0); Alkaline Phosphatase 56 U/L (38-126); Anion Gap 6 mmol/L; Blood Urea Nitrogen 12 mg/dL (7-17); Calcium 9.1 mg/dL (8.4-10.2); Carbon Dioxide 20 mmol/L (22-30); Chloride 115 mmol/L (98-107); Glucose 89 mg/dL (74-99); Non-African American GFR(CKD) 87 (>60 ml/min/1.73 sqM); Sodium 141 mmol/L (137-145); Total Bilirubin 0.5 mg/dL (0.2-1.3); Total Protein 6.4 g/dL (6.3-8.2)
--- NOTE | 2019-04-23 19:09 | XR ---
EXAMINATION TYPE: XR KUB DATE OF EXAM: 04/23/2019 COMPARISON: 10/09/2013 HISTORY: Abdominal pain TECHNIQUE: 2 views upright FINDINGS: There is no sign of intestinal obstruction or pneumoperitoneum. There are clips from cholec ystectomy. Lung bases are clear of infiltrate. There is no pleural effusion. There are no pathologic calcifications over the kidneys. Fecal pattern is normal. IMPRESSION: Nonacute abdomen. No change.
[2019-04-23 19:58] VITALS: BP 101/61; PULSE 81
== END 2019-04-23 19:58 | disposition home or self-care (01) ==
LOC: EC 17:19
DX: R10.9 Unspecified abdominal pain (principal); R11.0 Nausea; F41.9 Anxiety disorder, unspecified; F32.9 Major depressive disorder, single episode, unspecified; G40.909 Epilepsy, unspecified, not intractable, without status epilepticus; F17.200 Nicotine dependence, unspecified, uncomplicated; Z79.899 Other long term (current) drug therapy; Z88.5 Allergy status to narcotic agent; Z90.49 Acquired absence of other specified parts of digestive tract
CPT/HCPCS: 36415; 74018; 80053; 81001; 81025; 83605; 83690; 85025; 99284

== ENCOUNTER → 2019-05-21 | Outpatient (CLI) | payer OTHER ==
--- NOTE | 2019-05-21 12:02 | MM ---
Reason for exam: clinical finding. Last mammogram was performed 12 years and 10 months ago. History: Family history of breast cancer in mother. Took hormonal contraceptives for 20 years beginning at age 13. Physical Findings: Nurse did not find any significant physical abnormalities on exam. MG Diagnostic Mammo w CAD SARA Bilateral CC and MLO view(s) were taken. LM and spot compression MLO view(s) were taken of the left breast. No prior studies available for comparison. The breast tissue is heterogeneously dense. This may lower the sensitivity of mammography. There is no discrete abnormality on left MLO including area of concern on compression or ML. Focal asymmetry left MLO view. These results were verbally communicated with the patient and result sheet given to the patient on 05/21/19. ASSESSMENT: Benign, BI-RAD 2 RECOMMENDATION: Routine screening mammogram of both breasts at age 37. Manage on a clinical basis with regard to pain.
== END | disposition home or self-care (01) ==
LOC: RADMAMWWP 10:37 → EEVIPCON 11:00
PROVIDERS: ATTEND Obstetrics & Gynecology
DX: N64.4 Mastodynia (principal)
CPT/HCPCS: 77066

== ENCOUNTER 2019-08-23 14:32 | Emergency (ER) | payer OTHER ==
[2019-08-23 14:39] VITALS: RESP 18
[2019-08-23 15:26] LABS: Basophils # (A) 0.1 k/uL (0-0.2); Basophils % (A) 1 %; Eosinophils # (A) 0.2 k/uL (0-0.7); Eosinophils % (A) 2 %; HGB 14.1 gm/dL (11.4-16.0); Lymphocytes # (A) 3.3 k/uL (1.0-4.8); Lymphocytes % (A) 31 %; MCH 32.3 pg (25.0-35.0); MCHC 33.6 g/dL (31.0-37.0); MCV 96.1 fL (80.0-100.0); Mean Platelet Volume 7.4; Monocytes # (A) 0.7 k/uL (0-1.0); Monocytes % (A) 6 %; Neutrophils # (A) 6.2 k/uL (1.3-7.7); Neutrophils % (A) 58 %; Platelet Count 273 k/uL (150-450); RBC 4.37 m/uL (3.80-5.40); RDW 13.9 % (11.5-15.5); WBC 10.8 k/uL (3.8-10.6)
[2019-08-23 15:31] LABS: ALT 10 U/L (4-34); AST 15 U/L (14-36); African American GFR (CKD) >90 (>60 ml/min/1.73 sqM); Albumin 3.9 g/dL (3.5-5.0); Alkaline Phosphatase 64 U/L (38-126); Anion Gap 8 mmol/L; Blood Urea Nitrogen 10 mg/dL (7-17); Carbon Dioxide 18 mmol/L (22-30); Chloride 112 mmol/L (98-107); Glucose 94 mg/dL (74-99); Non-African American GFR(CKD) >90 (>60 ml/min/1.73 sqM); Potassium 3.7 mmol/L (3.5-5.1); Sodium 138 mmol/L (137-145); Total Bilirubin 0.4 mg/dL (0.2-1.3); Total Protein 6.8 g/dL (6.3-8.2)
--- NOTE | 2019-08-23 15:59 | US ---
EXAMINATION TYPE: US transvaginal DATE OF EXAM: 08/23/2019 COMPARISON: us 12/13/2018 CLINICAL HISTORY: pelvic pain. TECHNIQUE: Transvaginal sonographic images of the pelvis were acquired Date of LMP: 08/18/2019 EXAM MEASUREMENTS: Uterus: 5.3 x 2.9 x 3.7 cm Endometrial Stripe: 0.2 cm Right Ovary: 2.1 x 1.3 x 0.7 cm Left Ovary: 3.7 x 3.0 x 2.7 cm 1. Uterus: Anteverted Fluid visualized in cervix and lower uterine segment as seen on the prior. 2. Endometrium: wnl 3. Right Ovary: wnl 4. Left Ovary: Cyst measuring 2.9 x 2.2 x 2.3 cm. This appears anechoic. Spectral, color and waveform doppler imaging shows good arterial and venous flow within the ovaries ; there is no evidence for ovarian torsion. 5. Bilateral Adnexa: wnl 6. Posterior cul-de-sac: wnl IMPRESSION: 1. Simple appearing 2.9 cm left ovarian cyst. No current sonographic evidence of ovarian torsion at t he time of examination. 2. Fluid remains in the lower uterine segment and cervical canal as seen on the prior. Again this cou ld relate to cervical stenosis.
--- NOTE | 2019-08-23 16:03 | ED ---
Female Urogenital HPI - General Chief complaint: Vaginal Bleeding Stated complaint: vaginal bleeding Time Seen by Provider: 08/23/19 14:39 Source: patient Mode of arrival: ambulatory Limitations: no limitations - History of Present Illness Initial comments: 34-year-old female presenting today for chief complaint of vaginal bleeding. She states she is mostly on her. However the bleeding for the past 3 days has been heavier than usual. She states she initially menstruation approximately 3 days ago. Patient states she has some mild cramping. Denies any severe lower pelvic pain. Patient denies any back pain dysuria or urgency frequency or hematuria. Patient denies upper abdominal pain, nausea, or vomiting. Patient has an appointment with her OBGYN on September 07. Patient has no other complaints. Consent to treat was obtained initially via text by mother, however mother did call around 15:30 to give verbal consent. - Related Data Home Medications Medication Instructions Recorded Confirmed Citalopram Hydrobromide 40 mg PO HS 08/31/17 11/05/18 [Citalopram HBr] Folic Acid 1 mg PO DAILY 08/31/17 11/05/18 Topiramate [Topamax] 50 mg PO QAM 08/31/17 11/05/18 Topiramate [Topamax] 75 mg PO HS 08/31/17 11/05/18 Previous Rx's Medication Instructions Recorded Ondansetron [Zofran ODT] 4 mg PO Q8HR PRN #15 tab 11/06/18 Allergies Allergy/AdvReac Type Severity Reaction Status Date / Time codeine AdvReac "GOES Verified 08/23/19 14:36 CRAEsequielY" Review of Systems ROS Statement: Those systems with pertinent positive or pertinent negative responses have been documented in the HPI. ROS Other: All systems not noted in ROS Statement are negative. Past Medical History Past Medical History: Asthma, GERD/Reflux, Seizure Disorder Additional Past Medical History / Comment(s): VOMITING W/ BURNING IN CHEST intermittently, CEREBRAL PALSY, LAST SEIZURE 2015. History of Any Multi-Drug Resistant Organisms: None Reported Past Surgical History: Section, Cholecystectomy, Hernia Repair Additional Past Surgical History / Comment(s): HERNIA X2 Past Anesthesia/Blood Transfusion Reactions: Previous Problems w/ Anesthesia Additional Past Anesthesia/Blood Transfusion Reaction / Comment(s): TAKES AWHILE TO AWAKEN FROM ANESTHESIA,no hx blood transfusion Past Psychological History: Anxiety, Depression Smoking Status: Current every day smoker Past Alcohol Use History: None Reported Past Drug Use History: None Reported - Past Family History Mother Family Medical History: Cancer Additional Family Medical History / Comment(s): BREAST x2 General Exam - General Exam Comments Initial Comments: General: The patient is awake and alert, in no distress Eye: Pupils are equal, round and reactive to light, extra-ocular movements are intact. No nystagmus. There is normal conjunctiva bilaterally. No signs of icterus. Cardiovascular: There is a regular rate and rhythm. No murmur, rub or gallop is appreciated. Respiratory: Lungs are clear to auscultation, respirations are non-labored, breath sounds are equal. No wheezes, stridor, rales, or rhonchi. Gastrointestinal: Soft, non-distended, non-tender abdomen without masses or organomegaly noted. There is no rebound or guarding present. Pelvic: mild amount of blood in the vault, no adnexal tenderness, no cervical motion tenderness, no vaginal discharge. Musculoskeletal: Normal ROM, no tenderness. Strength 5/5. Sensation intact. Radial pulses equal bilaterally 2+. Neurological: A&O x 3. CN II-XII intact grossly, There are no obvious motor or sensory deficits. Coordination appears grossly intact. Speech is normal. Skin: Skin is warm and dry and no rashes or lesions are noted. Psychiatric: Cooperative, appropriate mood & affect, normal judgment. Limitations: no limitations Course Vital Signs 08/23/19 14:36 Temperature 98.8 F Pulse Rate 74 Respiratory 18 Rate Blood Pressure 104/64 O2 Sat by Pulse 98 Oximetry Medical Decision Making - Medical Decision Making 34-year-old female presents with vaginal bleeding patient states this is his usual time of menstruation. She states is heavier than usual. Patient denies any possible vaginal injury such as sexual toys or rough intercourse. patient denies recent intercourse in last week. Denies vaginal discharge or current concern for STDs denies fevers. Patient denies urinary symptoms ultrasound revealed small ovarian cyst findings were consistent wtih cervical stenosis. Pateint has OBGYN appointment on Jn 8th. patient HgB and VS stable. Vaginal exam revealed VERY mid bleeding. Patient has benign abdominal exam. Patient will be discharged with OBGYN f/u. Patient agreeable to care plan and discharge. - Lab Data Result diagrams: 08/23/19 15:00 08/23/19 15:00 Lab Results 08/23/19 08/23/19 08/23/19 Range/Units 15:00 15:00 15:00 WBC 10.8 H (3.8-10.6) k/uL RBC 4.37 (3.80-5.40) m/uL Hgb 14.1 (11.4-16.0) gm/dL Hct 42.0 (34.0-46.0) % MCV 96.1 (80.0-100.0) fL MCH 32.3 (25.0-35.0) pg MCHC 33.6 (31.0-37.0) g/dL RDW 13.9 (11.5-15.5) % Plt Count 273 (150-450) k/uL Neutrophils % 58 % Lymphocytes % 31 % Monocytes % 6 % Eosinophils % 2 % Basophils % 1 % Neutrophils # 6.2 (1.3-7.7) k/uL Lymphocytes # 3.3 (1.0-4.8) k/uL Monocytes # 0.7 (0-1.0) k/uL Eosinophils # 0.2 (0-0.7) k/uL Basophils # 0.1 (0-0.2) k/uL Sodium 138 (137-145) mmol/L Potassium 3.7 (3.5-5.1) mmol/L Chloride 112 H (98-107) mmol/L Carbon Dioxide 18 L (22-30) mmol/L Anion Gap 8 mmol/L BUN 10 (7-17) mg/dL Creatinine 0.67 (0.52-1.04) mg/dL Est GFR (CKD-EPI)AfAm >90 (>60 ml/min/1.73 sqM) Est GFR (CKD-EPI)NonAf >90 (>60 ml/min/1.73 sqM) Glucose 94 (74-99) mg/dL Calcium 9.0 (8.4-10.2) mg/dL Total Bilirubin 0.4 (0.2-1.3) mg/dL AST 15 (14-36) U/L ALT 10 (4-34) U/L Alkaline Phosphatase 64 (38-126) U/L Total Protein 6.8 (6.3-8.2) g/dL Albumin 3.9 (3.5-5.0) g/dL Urine HCG, Qual Not Detected (Not Detectd) Disposition Clinical Impression: Menstruation, Vaginal bleeding Disposition: HOME SELF-CARE Condition: Good Instructions (If sedation given, give patient instructions): Dysmenorrhea (ED) Additional Instructions: Please use medication as discussed. Please follow-up with family doctor in the next 2 days, please follow-up with OBGYN as scheduled--or within next 1-2 weeks. Please return to emergency room if the symptoms increase or worsen or for any other concerns. Is patient prescribed a controlled substance at d/c from ED?: No Referrals: Rich Larose MD [Primary Care Provider] - 1-2 days Time of Disposition: 16:02
[2019-08-23 16:34] VITALS: BP 110/78; PULSE 70; TEMP 97.8
[2019-08-26 13:27] LABS: C. trachomatis,PCR Negative (Neg,Equiv); Chlamydia trachomatis Source Vagina; N. gonorrhoeae,PCR Negative (Neg,Equiv); Neisseria Source Vagina
== END 2019-08-23 16:33 | disposition home or self-care (01) ==
LOC: EC 14:32
DX: N93.9 Abnormal uterine and vaginal bleeding, unspecified (principal); N83.202 Unspecified ovarian cyst, left side; F41.9 Anxiety disorder, unspecified; F32.9 Major depressive disorder, single episode, unspecified; G80.9 Cerebral palsy, unspecified; F17.200 Nicotine dependence, unspecified, uncomplicated; Z79.899 Other long term (current) drug therapy; Z88.5 Allergy status to narcotic agent
CPT/HCPCS: 36415; 76830; 80053; 81025; 85025; 87070; 87491; 87591; 87808; 93975; 99284

== ENCOUNTER → 2019-09-24 | Outpatient (CLI) | payer OTHER ==
[2019-09-24 21:15] LABS: HIV 2 AB Non-Reactive (Non-Reactive); HIV AB P24 Non-Reactive (Non-Reactive); HIV P24 AG Non-Reactive (Non-Reactive)
== END | disposition home or self-care (01) ==
LOC: LABWHC1 12:26
PROVIDERS: ATTEND Obstetrics & Gynecology
DX: D89.9 Disorder involving the immune mechanism, unspecified (principal); Z13.1 Encounter for screening for diabetes mellitus
CPT/HCPCS: 36415; 83036; 84439; 84443; 84479; 87390

== ENCOUNTER 2021-09-22 07:53 | Day surgery (SDC) | payer OTHER ==
[2021-09-21 11:00] VITALS: BMI 23.9
[~2021-09-22 07:53] MED LIST changes: -DEXAMETHASONE SOD PHOSPHATE 10 MG/ML 1 ML VIAL IV ONE; +LACTATED RINGERS 1,000 ML IV SCH; -LIDOCAINE 1% 20 ML VIAL (10MG/ML) FOR IV START INTRADERMA PRN; -MIDAZOLAM (PF) 2 MG/2 ML VIAL IV PRN; -Pre Op ABX Message 1 EACH MISC MISCELLANE ONE; -fentaNYL (PF) 50 MCG/ML 2 ML AMP IV PRN
[2021-09-22 08:43] VITALS: TEMP 98.1
[2021-09-22] MEDS ORDERED: LIDOCAINE 2% INJ 20 MG/ML (2 ML VIAL) ONE (08:58)
[2021-09-22] MEDS ORDERED: PROPOFOL 10 MG/ML 20 ML VIAL IV ONE (08:58)
--- NOTE | 2021-09-22 08:59 | P.GSHP ---
History of Present Illness H&P Date: 09/22/21 Chief Complaint: GERD This a 36-year-old female who presents today for EGD. She's had issues with GERD. Past Medical History Past Medical History: Asthma, GERD/Reflux, Seizure Disorder Additional Past Medical History / Comment(s): CEREBRAL PALSY, LAST SEIZURE 2016. History of Any Multi-Drug Resistant Organisms: None Reported Past Surgical History: Section, Cholecystectomy, Hernia Repair Additional Past Surgical History / Comment(s): HERNIA X2 Past Anesthesia/Blood Transfusion Reactions: Previous Problems w/ Anesthesia Additional Past Anesthesia/Blood Transfusion Reaction / Comment(s): TAKES AWHILE TO AWAKEN FROM ANESTHESIA, no hx blood transfusion Smoking Status: Current every day smoker - Past Family History Mother Family Medical History: Cancer Additional Family Medical History / Comment(s): BREAST x2 Medications and Allergies Home Medications Medication Instructions Recorded Confirmed Type Citalopram Hydrobromide 40 mg PO HS 08/31/17 09/22/21 History [Citalopram HBr] Folic Acid 1 mg PO DAILY 08/31/17 09/22/21 History Topiramate [Topamax] 50 mg PO QAM 08/31/17 09/22/21 History Topiramate [Topamax] 75 mg PO HS 08/31/17 09/22/21 History Allergies Allergy/AdvReac Type Severity Reaction Status Date / Time codeine AdvReac "GOES Verified 09/22/21 08:31 CRAZY" Surgical - Exam Vital Signs Temp Resp BP Pulse Ox 98.1 F 18 99/60 98 09/22/21 08:41 09/22/21 08:41 09/22/21 08:41 09/22/21 08:41 - General well developed, well nourished, no distress - Eyes PERRL - ENT normal pinna - Neck no masses - Respiratory normal expansion - Cardiovascular Rhythm: regular - Abdomen Abdomen: soft, non tender Assessment and Plan Assessment: GERD. We'll perform EGD.
--- NOTE | 2021-09-22 09:09 | P.OP ---
Date of Procedure: 09/22/21 Preoperative Diagnosis: GERD Postoperative Diagnosis: Antral gastritis Hiatal hernia Esophagitis Procedure(s) Performed: EGD Anesthesia: MAC Surgeon: Ab Fortune Pathology: other (Antrum, esophagus) Condition: stable Disposition: PACU Description of Procedure: Patient's placed on the endoscopy table in the lateral position. He received IV sedation. The gastroscope placed oropharynx passed in the esophagus and stomach. Scope was then placed through the pylorus. The first and second portion of the duodenum appeared normal. Scope was then brought back the antrum was mildly inflamed. A biopsies performed. Scope was then retroflexed and the remainder the stomach appeared normal. There was a moderate size sliding hiatal hernia. The GE junction was at 38 cm. The distal esophagus appeared inflamed. A biopsies performed. The proximal esophagus appeared normal. Scope withdrawn for patient.
[2021-09-22 09:18] VITALS: RESP 16
[2021-09-22 09:31] VITALS: BP 97/68; PULSE 87
== END 2021-09-22 09:55 | disposition home or self-care (01) ==
LOC: ORWHC2ENDO 07:53
PROVIDERS: ATTEND Surgery
DX: K21.00 Gastro-esophageal reflux disease with esophagitis, without bleeding (principal); K29.70 Gastritis, unspecified, without bleeding; K31.9 Disease of stomach and duodenum, unspecified; K44.9 Diaphragmatic hernia without obstruction or gangrene; J45.909 Unspecified asthma, uncomplicated; G40.909 Epilepsy, unspecified, not intractable, without status epilepticus; G80.9 Cerebral palsy, unspecified; F17.200 Nicotine dependence, unspecified, uncomplicated; F39 Unspecified mood [affective] disorder; Z79.899 Other long term (current) drug therapy; Z98.891 History of uterine scar from previous surgery; Z90.49 Acquired absence of other specified parts of digestive tract; Z98.890 Other specified postprocedural states; Z80.3 Family history of malignant neoplasm of breast
CPT/HCPCS: 81025; 88305; 43239; J2704; J2001

== ENCOUNTER → 2021-10-05 | Outpatient (CLI) | payer OTHER ==
[2021-10-05 18:20] LABS: Basophils % (A) 1.1 %; Eosinophils # (A) 0.36 X 10*3/uL (0.04-0.35); HCT 40.3 % (37.2-46.3); HGB 12.8 g/dL (12.0-15.0); Immature Grans, Automated 0.2 %; Lymphocytes # (A) 2.46 X 10*3/uL (0.90-5.00); Lymphocytes % (A) 27.2 %; MCH 30.1 pg (27.0-32.0); MCHC 31.8 g/dL (32.0-37.0); MCV 94.8 fL (80.0-97.0); Mean Platelet Volume 10.5 fL (9.5-12.2); Monocytes # (A) 1.41 X 10*3/uL (0.20-1.00); Monocytes % (A) 15.6 %; NRBC Per 100 WBC 0 /100 WBCS (0.0-0.0); Neutrophils # (A) 4.68 X 10*3/uL (1.80-7.70); Neutrophils % (A) 51.9 %; Platelet Count 299 X 10*3/uL (140-440); RBC 4.25 X 10*6/uL (4.10-5.20); RDW 14.8 % (11.5-14.5); WBC 9.03 X 10*3/uL (4.50-10.00)
== END | disposition home or self-care (01) ==
LOC: LABPAT 13:07
PROVIDERS: ATTEND Surgery
DX: Z01.818 Encounter for other preprocedural examination (principal); K21.00 Gastro-esophageal reflux disease with esophagitis, without bleeding; R94.31 Abnormal electrocardiogram [ECG] [EKG]
CPT/HCPCS: 85025; 93005

== ENCOUNTER 2021-10-11 09:23 | Day surgery (SDC) | payer OTHER ==
[~2021-10-11 09:23] MED LIST changes: +ACETAMINOPHEN TAB 500 MG TAB PO PRN; +DEXAMETHASONE SOD PHOSPHATE 4 MG/ML 1 ML VIAL IV ONE; +HEPARIN SODIUM,PORCINE/PF 5,000 UNIT/0.5 ML SYRINGE SQ PRN; -LACTATED RINGERS 1,000 ML IV SCH; +LIDOCAINE 1% (10MG/ML) FOR IV START INTRADERMA PRN; +METOCLOPRAMIDE 5 MG/ML 2 ML VIAL IVP PRN; +ONDANSETRON 4 MG/2 ML VIAL IVP ONE; +SCOPOLAMINE 1 MG/72 HR PATCH TRANSDERM ONE
[2021-10-11] MEDS: LACTATED RINGERS 1,000 ML IV SCH (09:48)
--- NOTE | 2021-10-11 10:19 | P.GSHP ---
History of Present Illness H&P Date: 10/11/21 Chief Complaint: GERD This a 36-year-old female referred from Dr. montano. The patient has had long-standing problems with reflux esophagitis. The patient underwent recent EGD is found have evidence of esophagitis. Patient has been well informed on the procedure of laparoscopic Jimmy fundoplication. The patient is aware the risk of the conversion to the open procedure, risk of injury to the stomach, liver and spleen. The patient is also a risk of recurr ent GERD and dysphagia symptoms. The patient understands there is a postoperative diet of full liquids for 2 weeks after surgery. Past Medical History Past Medical History: Asthma, GERD/Reflux, Seizure Disorder Additional Past Medical History / Comment(s): CEREBRAL PALSY, LAST SEIZURE 2015. History of Any Multi-Drug Resistant Organisms: None Reported Past Surgical History: Section, Cholecystectomy, Hernia Repair, Tubal Ligation Additional Past Surgical History / Comment(s): HERNIA X2 Past Anesthesia/Blood Transfusion Reactions: Previous Problems w/ Anesthesia Additional Past Anesthesia/Blood Transfusion Reaction / Comment(s): TAKES AWHILE TO AWAKEN FROM ANESTHESIA, no hx blood transfusion Past Psychological History: Anxiety, Depression Smoking Status: Current every day smoker Past Alcohol Use History: None Reported Additional Past Alcohol Use History / Comment(s): SMOKING SINCE AGE 14, 1 PPD Past Drug Use History: None Reported - Past Family History Mother Family Medical History: Cancer Additional Family Medical History / Comment(s): BREAST x2 Medications and Allergies Home Medications Medication Instructions Recorded Confirmed Type Citalopram Hydrobromide 40 mg PO HS 08/31/17 10/11/21 History [Citalopram HBr] Folic Acid 1 mg PO DAILY 08/31/17 10/11/21 History Topiramate [Topamax] 50 mg PO QAM 08/31/17 10/11/21 History Topiramate [Topamax] 75 mg PO HS 08/31/17 10/11/21 History Acetaminophen Tab [Tylenol] 325 - 650 mg PO Q6HR PRN 10/10/21 10/11/21 History diphenhydrAMINE [Benadryl] 25 mg PO DAILY PRN 10/10/21 10/11/21 History Allergies Allergy/AdvReac Type Severity Reaction Status Date / Time codeine AdvReac "GOES Verified 10/11/21 09:42 CRAZY" Surgical - Exam Vital Signs Temp Pulse Resp BP Pulse Ox 97.2 F L 75 18 108/68 98 10/11/21 09:52 10/11/21 09:52 10/11/21 09:52 10/11/21 09:52 10/11/21 09:52 - General well developed, well nourished, no distress - Eyes PERRL - ENT normal pinna - Neck no masses - Respiratory normal expansion - Cardiovascular Rhythm: regular - Abdomen Abdomen: soft, non tender Assessment and Plan Assessment: GERD. We'll perform laparoscopic Jimmy fundal plication.
[2021-10-11] MEDS ORDERED: LIDOCAINE 2% INJ 20 MG/ML (2 ML VIAL) ONE (10:43)
[2021-10-11] MEDS ORDERED: PROPOFOL 10 MG/ML 20 ML VIAL IV ONE (10:43)
[2021-10-11] MEDS ORDERED: SUCCINYLCHOLINE CHLORIDE 100 MG/5 ML SYR IV ONE (10:43)
[2021-10-11] MEDS ORDERED: PHENYLEPHRINE-0.9% NACL SYG 1,000 MCG/10 ML SYRINGE ONE (10:43)
[2021-10-11] MEDS ORDERED: WATER FOR INJECTION, STERILE 10 ML VIAL IV ONE (10:43)
[2021-10-11] MEDS ORDERED: ePHEDrine 50 MG/ML 1 ML VIAL ONE (10:43)
[2021-10-11] MEDS ORDERED: LIDOCAINE 4% LTA KIT (4 ML) TOPICAL ONE (10:43)
[2021-10-11] MEDS ORDERED: ROCURONIUM 10 MG/ML (5 ML VIAL) IV ONE (10:43)
[2021-10-11] MEDS ORDERED: fentaNYL (PF) 50 MCG/ML 2 ML AMP ONE (10:43)
[2021-10-11] MEDS ORDERED: MIDAZOLAM 2 MG/2 ML VIAL ONE (10:43)
[2021-10-11] MEDS ORDERED: BUPIVACAIN-EPI 0.25%-1:200,000 30 ML VIAL SQ ONE (11:17)
[2021-10-11] MEDS ORDERED: HYDROmorphone 1 MG/ML 1 ML SYRINGE IVP PRN (11:45)
--- NOTE | 2021-10-11 11:45 | P.OP ---
Date of Procedure: 10/11/21 Preoperative Diagnosis: GERD Postoperative Diagnosis: GERD Procedure(s) Performed: Laparoscopic Jimmy fundoplication Transversus abdominis plane block Anesthesia: LC Surgeon: Ab Fortune Estimated Blood Loss (ml): 5 Pathology: none sent Condition: stable Disposition: PACU Description of Procedure: HThe patient was placed on the operating table in the supine position. The patient received general anesthesia. And was placed in dorsal lithotomy positio n. The patient was prepped and draped in the usual sterile fashion. The skin incision sites were anesthetized with 1% local Xylocaine. The skin was incised in the left periumbilical area and then using a blade less 5 mm trocar under direct visualization panel cavity was entered. After adequate insufflation the laparoscope was then placed into the peritoneal cavity. Next a 5 mm trochars placed in the right epigastric position. Another 5 millimeter trocar the right lateral position. Another 5 millimeter trocar in the left lateral position a 5 mm trocar is placed in the left epigastric position. And then the initial 5 mm trocar was exchanged for a 10 mm trocar. The left lateral lobe liver was retracted. The hernia was seen. The crural defect was then dissected using the Harmonic scissors device. A 360 crural dissection was performed the esophagus stomach was reduced back into the peritoneal Cavity. The crural defect was then closed using 2-0 Ethibond suture. Next the fundus of the stomach was mobilized using the [place] scissors device. and then a 58-[place] bougie dilator was placed oropharynx passed into the esophagus and stomach the fundal plication wrap was then performed by grasping the fundus posteriorly and bringing it around the esophagus and stomach fundoplication was then performed using 2-0 Ethibond suture. Care was taken that the fundal location rested over top of the intra-abdominal esophagus. There was no injury seen to the stomach or esophagus. The dilator was then withdrawn. The abdomen was irrigated there is no bleeding seen. The trochars were then withdrawn and then skin incision sites were closed using 3-0 Monocryl suture Steri-Strips are applied. Patient thought procedure well and sent to recovery room in stable condition.
[2021-10-11] MEDS: HYDROmorphone 0.5 MG/0.5 ML SYRINGE IVP PRN ×2 (12:07→12:29)
[2021-10-11] MEDS: ONDANSETRON 4 MG/2 ML VIAL IVP PRN ×2 (12:22→19:39)
[2021-10-11] MEDS ORDERED: LACTATED RINGERS 1,000 ML IV ONE ×3 (12:30)
[2021-10-11] MEDS: D5-0.45% NACL WITH KCL 20MEQ/L 1,000 ML IV SCH (17:30)
[2021-10-11] MEDS: ACETAMINOPHEN TAB 500 MG TAB PO PRN (19:36)
[2021-10-11] MEDS ORDERED: TOPIRAMATE 25 MG TAB PO SCH (21:00)
[2021-10-11] MEDS ORDERED: CITALOPRAM HYDROBROMIDE 20 MG TAB PO SCH (21:00)
--- NOTE | 2021-10-11 23:50 | P.CONS ---
History of Present Illness - Reason for Consult Consult date: 10/11/21 medical management, post Linh fundoplication, Requesting physician: Ab Fortune - Chief Complaint post Linh fundoplication, history of asthma, history of seizure. - History of Present Illness HISTORY OF PRESENT ILLNESS 36-year-old female one of Dr. Larose patient with past medical history of cerebral palsy, asthma, seizure, history of migraine who has been suffering from severe progressive heartburn and indigestion for the last few weeks become much better patient not able to rest and sleep flat in bed. Patient was seen and evaluated still slightly bit drowsy and tired not having any nausea or vomiting and her abdominal discomfort has improved significantly. Patient apparently had an EGD recently which revealed esophagitis REVIEW OF SYSTEMS Constitutional: No fever, no chills, no night sweats. No weight change. No weakness, fatigue or lethargy. No daytime sleepiness. EENT: No headache. No blurred vision or double vision, no loss of vision. No loss of Hearing, no ringing in the ears, no dizziness. No nasal drainage or congestion. No epistaxis. No sore throat. Lungs: Decrease breasts bilaterally without rhonchi with mild expiratory wheezes. Cardiovascular: No chest pain, no lower extremity edema. No palpitations. No paroxysmal nocturnal dyspnea. No orthopnea. No lightheadedness or dizziness. No syncopal episodes. Abdominal: multiple scar tissue from her linh fundoplication surgery them is losing bleeding or has any sign of infection.No abdominal pain. No nausea, vomiting. No diarrhea. No constipation. No bloody or tarry stools.. No loss of appetite. Genitourinary: No dysuria, increased frequency, urgency. No urinary retention. Musculoskeletal: No myalgias. No muscle weakness, no gait dysfunction, no frequent falls. No back pain. No neck pain. Integumentary: No wounds, no lesions. No rash or pruritus. No unusual bruising. No change in hair or nails. Neurologic: No aphasia. No facial droop. No change in mentation. No head injury. No headache. No paralysis. No paresthesia. Psychiatric: No depression. No anxiety. No mood swings. Endocrine: No abnormal blood sugars. No weight change. No excessive sweating or thirst. No cold intolerance. social history: she smoked 1 pack a day for 15 years, no alcohol abuse, she lives at home with family members. FAMILY HISTORY chest one child who is living and well, 5 siblings with no major medical problem her parents are both still living in their 60s. PHYSICAL EXAMINATION Gen: This is mildly overweight laying in bed does not look in any respiratory distress. HEENT: Head is atraumatic, normocephalic. Pupils equal, round. Sclerae is anicteric. NECK: Supple. No JVD. No lymphadenopathy. No thyromegaly. LUNGS: decrease + bilaterally with fine rhonchi and mild expiratory wheezes. HEART: Regular rate and rhythm. No murmur. ABDOMEN: Soft. Bowel sounds are present. scar tissue in the mid abdominal area looks infiltrate EXTREMITIES: No pedal edema. No calf tenderness. NEUROLOGICAL: Patient is awake, alert and oriented x3. Cranial nerves 2 through 12 are grossly intact. ASSESSMENT AND PLAN - well-developed leg in bed does not look in any respiratory distress still have O2 on at the time. - Severe GERD with sign of hiatal hernia: Post Linh fundoplication, whether patient is going require any PPI or not this to be determined. - History of seizure: Has been well suppressed and controlled by Topamax continue 50 mg in the morning 70 5 in the evening. - History of asthma: Continue rescue inhaler and O2 incentive spirometry will be kept at the bedside. - Nicotine dependency: Patient be started on nicotine patch 14 mg a day. - history of migraine, still on Topamax doing well. - Chronic depression: Resume citalopram 40 mg daily. - GI prophylaxis: Patient be continued on pantoprazole. - DVT prophylaxis: Continue heparin subcutaneous. CODE STATUS: Full code. Dr. Fortune thank you much for the consult if I can be any further help to please let me know. Past Medical History Past Medical History: Asthma, GERD/Reflux, Seizure Disorder Additional Past Medical History / Comment(s): CEREBRAL PALSY, LAST SEIZURE 2015. History of Any Multi-Drug Resistant Organisms: None Reported Past Surgical History: Section, Cholecystectomy, Hernia Repair, Tubal L igation Additional Past Surgical History / Comment(s): HERNIA X2 Past Anesthesia/Blood Transfusion Reactions: Previous Problems w/ Anesthesia Additional Past Anesthesia/Blood Transfusion Reaction / Comm: TAKES AWHILE TO AWAKEN FROM ANESTHESIA, no hx blood transfusion Past Psychological History: Anxiety, Depression Smoking Status: Current every day smoker Past Alcohol Use History: None Reported Additional Past Alcohol Use History / Comment(s): SMOKING SINCE AGE 14, 1 PPD Past Drug Use History: None Reported - Past Family History Mother Family Medical History: Cancer Additional Family Medical History / Comment(s): BREAST x2 Medications and Allergies Home Medications Medication Instructions Recorded Confirmed Type Citalopram Hydrobromide 40 mg PO HS 08/31/17 10/11/21 History [Citalopram HBr] Folic Acid 1 mg PO DAILY 08/31/17 10/11/21 History Topiramate [Topamax] 50 mg PO QAM 08/31/17 10/11/21 History Topiramate [Topamax] 75 mg PO HS 08/31/17 10/11/21 History Acetaminophen Tab [Tylenol] 325 - 650 mg PO Q6HR PRN 10/10/21 10/11/21 History diphenhydrAMINE [Benadryl] 25 mg PO DAILY PRN 10/10/21 10/11/21 History Allergies Allergy/AdvReac Type Severity Reaction Status Date / Time codeine AdvReac "GOES Verified 10/11/21 09:42 CRAZY" Physical Exam Vitals: Vital Signs Temp Pulse Resp BP Pulse Ox 10/11/21 17:30 98.4 F 96 14 129/84 94 L 10/11/21 16:30 97 16 116/74 98 10/11/21 15:30 97 16 107/60 97 10/11/21 15:00 97 18 116/81 98 10/11/21 14:30 91 18 116/78 97 10/11/21 13:53 97 18 118/80 90 L 10/11/21 13:38 94 18 115/78 99 10/11/21 13:23 96 20 115/75 99 10/11/21 13:07 97 16 92/56 95 10/11/21 12:52 103 H 16 126/70 98 10/11/21 12:39 101 H 16 123/74 97 10/11/21 12:26 100 16 132/71 97 10/11/21 12:11 99 16 130/79 97 10/11/21 11:56 97.1 F L 120 H 12 134/92 97 10/11/21 09:52 97.2 F L 75 18 108/68 98 Intake and Output 10/11/21 10/11/21 10/11/21 06:59 14:59 22:59 Intake Total 1400 125 Output Total 5 Balance 1395 125 Intake: IV 1400 Intake, IV Titration 125 Amount D5-0.45% NaCl with KCl 125 20Meq/l 1,000 ml @ 125 mls/hr IV .Q8H [facility] Rx#: [id number] Output: Estimated Blood Loss 5 Other: Weight 57.2 kg
[2021-10-12] MEDS: D5-0.45% NACL WITH KCL 20MEQ/L 1,000 ML IV SCH (01:08)
[2021-10-12] MEDS: LACTATED RINGERS 1,000 ML IV SCH (01:47)
[2021-10-12 04:06] VITALS: TEMP 98.2
[2021-10-12] MEDS: ACETAMINOPHEN TAB 500 MG TAB PO PRN (04:06)
[2021-10-12] MEDS ORDERED: ENOXAPARIN 40 MG/0.4 ML SYRINGE SQ SCH (09:00)
[2021-10-12] MEDS ORDERED: TOPIRAMATE 25 MG TAB PO SCH (09:00)
[2021-10-12] MEDS ORDERED: FOLIC ACID 1 MG TAB PO SCH (09:00)
--- NOTE | 2021-10-12 11:50 | P.PN ---
Subjective Progress Note Date: 10/12/21 HISTORY OF PRESENT ILLNESS 36-year-old female one of Dr. Larose patient with past medical history of cerebral palsy, asthma, seizure, history of migraine who has been suffering from severe progressive heartburn and indigestion for the last few weeks become much better patient not able to rest and sleep flat in bed. Patient was seen and evaluated still slightly bit drowsy and tired not having any nausea or vomiting and her abdominal discomfort has improved significantly. Patient apparently had an EGD recently which revealed esophagitis 10/12: Patient states that she continues to have abdominal pain. She has not had any food yet this morning. She is on a Linh clear liquid diet. Patient has been afebrile, heart rate 89, blood pressure 125/80, pulse ox 95% on room air. Medication reconciliation completed in case patient goes home today. REVIEW OF SYSTEMS Constitutional: No fever, no chills, no night sweats. No weight change. No weakness, fatigue or lethargy. No daytime sleepiness. EENT: No headache. No blurred vision or double vision, no loss of vision. No loss of Hearing, no ringing in the ears, no dizziness. No nasal drainage or congestion. No epistaxis. No sore throat. Lungs: Decrease breasts bilaterally without rhonchi with mild expiratory wheezes. Cardiovascular: No chest pain, no lower extremity edema. No palpitations. No paroxysmal nocturnal dyspnea. No orthopnea. No lightheadedness or dizziness. No syncopal episodes. Abdominal: multiple scar tissue from her linh fundoplication surgery them is losing bleeding or has any sign of infection.No abdominal pain. No nausea, vomiting. No diarrhea. No constipation. No bloody or tarry stools.. No loss of appetite. Genitourinary: No dysuria, increased frequency, urgency. No urinary retention. Musculoskeletal: No myalgias. No muscle weakness, no gait dysfunction, no frequent falls. No back pain. No neck pain. Integumentary: No wounds, no lesions. No rash or pruritus. No unusual bruising. No change in hair or nails. Neurologic: No aphasia. No facial droop. No change in mentation. No head injury. No headache. No paralysis. No paresthesia. Psychiatric: No depression. No anxiety. No mood swings. Endocrine: No abnormal blood sugars. No weight change. No excessive sweating or thirst. No cold intolerance. PHYSICAL EXAMINATION Gen: This is a 36-year-old female resting in bed does not look in any respiratory distress. HEENT: Head is atraumatic, normocephalic. Pupils equal, round. Sclerae is anicteric. NECK: Supple. No JVD. No lymphadenopathy. No thyromegaly. LUNGS: decrease + bilaterally with fine rhonchi and mild expiratory wheezes. HEART: Regular rate and rhythm. No murmur. ABDOMEN: Soft. Bowel sounds are present. scar tissue in the mid abdominal, no sign of infection EXTREMITIES: No pedal edema. No calf tenderness. NEUROLOGICAL: Patient is awake, alert and oriented x3. Cranial nerves 2 through 12 are grossly intact. ASSESSMENT AND PLAN - Severe GERD with sign of hiatal hernia: Post Linh fundoplication, whether patient is going require any PPI or not this to be determined. - History of seizure: Has been well suppressed and controlled by Topamax continue 50 mg in the morning 75 in the evening. - History of asthma: Continue rescue inhaler and O2 incentive spirometry will be kept at the bedside. - Nicotine dependency: Patient be started on nicotine patch 14 mg a day. - history of migraine, still on Topamax doing well. - Chronic depression: Resume citalopram 40 mg daily. - GI prophylaxis: Patient be continued on pantoprazole. - DVT prophylaxis: Continue heparin subcutaneous. CODE STATUS: Full code. Dr. Fortune thank you much for the consult if I can be any further help to please let me know. Impression and plan of care have been directed as dictated by the signing physician. Lida Gee nurse practitioner acting as scribe for signing physician. Objective - Vital Signs Vital signs: Vital Signs Temp 98.2 F 10/12/21 04:05 Pulse 89 10/12/21 04:05 Resp 18 10/12/21 04:05 BP 125/80 10/12/21 04:05 Pulse Ox 95 10/12/21 04:05 FiO2 Intake & Output 10/11/21 10/12/21 10/12/21 18:59 06:59 18:59 Intake Total 1525 1620 Output Total 5 Balance 1520 1620 Weight 57.2 kg Intake: IV 1400 Intake, IV Titration 125 1500 Amount D5-0.45% NaCl with KCl 125 1500 20Meq/l 1,000 ml @ 125 mls/hr IV .Q8H [facility] Rx#: [id number] Oral 120 Output: Estimated Blood Loss 5 Other: # Voids 3
[2021-10-12 12:30] VITALS: BP 127/81; PULSE 87; RESP 16
--- NOTE | 2021-10-12 12:45 | P.DS ---
Providers Expected date of discharge: 10/12/21 Attending physician: Ab Barker Consults: 10/11/21 11:45 Consult Physician Routine Consulting Provider: uRdy Seo Consult Reason/Comments: Medical management Do you want consulting provider notified?: Yes Primary care physician: Rich Larose Hospital Course: Discharge diagnosis 1. GERD status post laparoscopic Jimmy fundoplication Hospital course This is a 36-year-old female with a known history of GERD. She is status post laparoscopic Jimmy fundoplication. Tolerate surgery well. She is tolerating diet. Pain controlled. She's been up ambulating. She is having flatus. Afebrile. She is stable for discharge. Please refer to chart for any further details. Patient seen and examined with Dr. barker Physician Cut Out Stitcher note has been reviewed by physician. Signing provider agrees with the documented findings, assessment, and plan of care. Patient Condition at Discharge: Stable Plan - Discharge Summary Discharge Rx Participant: No New Discharge Prescriptions: Continue Folic Acid 1 mg PO DAILY Topiramate [Topamax] 75 mg PO HS Topiramate [Topamax] 50 mg PO QAM Citalopram Hydrobromide [Citalopram HBr] 40 mg PO HS diphenhydrAMINE [Benadryl] 25 mg PO DAILY PRN PRN Reason: Headache Acetaminophen Tab [Tylenol] 325 - 650 mg PO Q6HR PRN PRN Reason: Headache Discharge Medication List Citalopram Hydrobromide [Citalopram HBr] 40 mg PO HS 08/31/17 [History] Folic Acid 1 mg PO DAILY 08/31/17 [History] Topiramate [Topamax] 50 mg PO QAM 08/31/17 [History] Topiramate [Topamax] 75 mg PO HS 08/31/17 [History] Acetaminophen Tab [Tylenol] 325 - 650 mg PO Q6HR PRN 10/10/21 [History] diphenhydrAMINE [Benadryl] 25 mg PO DAILY PRN 10/10/21 [History] Follow up Appointment(s)/Referral(s): Rich Larose MD [Primary Care Provider] - 1 Week Ab Barker MD [STAFF PHYSICIAN] - 1 Week Activity/Diet/Wound Care/Special Instructions: No lifting over 10 pounds Shower daily. No soaking or tub baths for 2 weeks Very light activity until you are reevaluated at your follow up appointment with your surgeon No straws or carbonated beverages Continue on a full liquid diet until seen by surgeon Continue Tylenol OTC every 6 hours when necessary for pain Discharge Disposition: HOME SELF-CARE
== END 2021-10-12 13:27 | disposition home or self-care (01) ==
LOC: OR 09:23 → 5NMEDONC 16:09 → OR 10-12 13:27
PROVIDERS: ATTEND Surgery
DX: K21.00 Gastro-esophageal reflux disease with esophagitis, without bleeding (principal); R13.10 Dysphagia, unspecified; J45.909 Unspecified asthma, uncomplicated; G40.909 Epilepsy, unspecified, not intractable, without status epilepticus; G80.9 Cerebral palsy, unspecified; Z98.891 History of uterine scar from previous surgery; Z90.49 Acquired absence of other specified parts of digestive tract; Z98.51 Tubal ligation status; Z98.890 Other specified postprocedural states; F41.9 Anxiety disorder, unspecified; F32.A Depression, unspecified; F17.210 Nicotine dependence, cigarettes, uncomplicated; Z80.3 Family history of malignant neoplasm of breast; Z79.899 Other long term (current) drug therapy; Z88.5 Allergy status to narcotic agent
CPT/HCPCS: 81025; 86900; 86901; 86850; 43280; J1100; J0690; J2405; J1650; J1170; J1790; J1644

== ENCOUNTER 2023-07-26 07:24 | Day surgery (SDC) | payer OTHER ==
[2023-07-24 15:44] VITALS: BMI 22.8
[2023-07-26] MEDS: LACTATED RINGERS 1,000 ML IV ONE ×2 (09:24→10:03)
[2023-07-26] MEDS ORDERED: LACTATED RINGERS 1,000 ML IV SCH (09:28)
[2023-07-26] MEDS ORDERED: PROPOFOL 10 MG/ML 20 ML VIAL IV ONE (10:09)
[2023-07-26] MEDS ORDERED: LIDOCAINE 2% (PF) 20 MG/ML 5 ML VIAL ONE (10:09)
[2023-07-26 10:11] VITALS: TEMP 97.3
--- NOTE | 2023-07-26 10:14 | P.OP ---
Date of Procedure: 07/26/23 Preoperative Diagnosis: GERD Postoperative Diagnosis: antral gastritis Procedure(s) Performed: EGD Anesthesia: MAC Surgeon: Ab Fortune Pathology: other (antrum) Condition: stable Disposition: PACU Description of Procedure: the patient's placed on the endoscopy table lateral position. She received IV sedation. The gastroscope placed oropharynx passed in the esophagus and stomach. Scope was then placed through the pylorus. First and second portion of the duodenum appeared normal. Scope was then brought back the antrum this. Mildly inflamed. A biopsies performed. Scope was then retroflexed and remainder the stomach appeared normal. There was no evidence of recurrent hiatal hernia. The GE junction 47 is. The distal esophagus appeared normal. The proximal esophagus appeared normal. Scope withdrawn for patient.
[2023-07-26 10:58] VITALS: BP 100/73; PULSE 78; RESP 18
== END 2023-07-26 10:53 | disposition home or self-care (01) ==
LOC: ORWHC2ENDO 07:24
PROVIDERS: ATTEND Surgery
DX: K31.9 Disease of stomach and duodenum, unspecified (principal); K21.9 Gastro-esophageal reflux disease without esophagitis; G40.909 Epilepsy, unspecified, not intractable, without status epilepticus; G80.9 Cerebral palsy, unspecified; Z79.899 Other long term (current) drug therapy; Z88.5 Allergy status to narcotic agent; Z88.8 Allergy status to other drugs, medicaments and biological substances
CPT/HCPCS: 81025; 88305; 43239; J2704; J2001

== ENCOUNTER → 2023-08-08 | Outpatient (CLI) | payer OTHER ==
--- NOTE | 2023-08-08 09:45 | FL ---
EXAMINATION TYPE: FL UGI air w esophagus DATE OF EXAM: 08/08/2023 CLINICAL INDICATION: 38-year-old female K21.00, GERD COMPARISON: Correlation CT 11/05/2018 Fluoroscopy time: 3 minutes 12 seconds. Total images: 51. Total dose: 674.13 mGycm2. FINDINGS: The swallowing mechanism is normal and hypopharyngeal anatomy is preserved. The cervical and thoracic portions have a normal course and caliber. There is mild esophageal dysmoti lity especially distally with some residual contrast remaining in the distal esophagus. The mucosa is normal and no persistent filling defect is encountered. No hiatal hernia is present. There is some contour changes to the fundus of the stomach; we suspect prior surgery/hiatal hernia repair though the patient denies this. Further clinical correlation recom mended. Unable to elicit any gastroesophageal reflux. Mucosal assessment of the stomach is limited as the patient ate prior to the exam. Patient initially stated that there was only a small amount ingested slowly proceeded with the study. Images show signi ficant retained debris throughout the stomach. No obvious large ulceration or large filling defect is identified. Cholecystectomy clips. There is absence of the normal duodenal sweep and opacified jejunal loops remain in the right side of the abdomen. IMPRESSION: 1. Mild esophageal dysmotility. 2. Contour changes along the fundus of the stomach. We suspect prior hiatal hernia repair though the patient denies this. Further clinical correlation recommended. No recurrent hernia or gastroesophagea l reflux seen. 3. Assessment of the gastric mucosa is significantly limited due to the amount of ingested food prior to the exam. 4. 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
== END | disposition home or self-care (01) ==
LOC: RADUSWWP 08:11
PROVIDERS: ATTEND Surgery
DX: K22.4 Dyskinesia of esophagus (principal); Q43.3 Congenital malformations of intestinal fixation; K21.00 Gastro-esophageal reflux disease with esophagitis, without bleeding
CPT/HCPCS: 74246

== ENCOUNTER → 2024-10-22 | Outpatient (CLI) | payer OTHER ==
[2024-10-22 19:24] LABS: ALT 14 U/L (8-44); AST 13 U/L (13-35); Albumin 4.0 g/dL (3.8-4.9); Albumin/Globulin Ratio 1.67 Ratio (1.60-3.17); Alkaline Phosphatase 60 U/L (41-126); Anion Gap 8.90 mmol/L (4.00-12.00); BUN/Creat Ratio 11.38 Ratio (12.00-20.00); Blood Urea Nitrogen 9.1 mg/dL (9.0-27.0); Calcium 9.1 mg/dL (8.7-10.3); Carbon Dioxide 22.1 mmol/L (21.6-31.8); Chloride 108 mmol/L (96-109); Globulin 2.4 g/dL (1.6-3.3); Glucose 72 mg/dL (70-110); Potassium 4.1 mmol/L (3.5-5.5); Sodium 139 mmol/L (135-145); Total Protein 6.4 g/dL (6.2-8.2)
[2024-10-22 19:59] LABS: Basophils # (A) 0.09 X 10*3/uL (0.00-0.10); Basophils % (A) 0.9 %; Eosinophils # (A) 0.19 X 10*3/uL (0.04-0.35); Eosinophils % (A) 1.9 %; HCT 39.0 % (37.2-46.3); HGB 12.8 g/dL (12.0-15.0); Immature Grans, Automated 0.30 %; Lymphocytes # (A) 3.49 X 10*3/uL (0.90-5.00); Lymphocytes % (A) 34.3 %; MCH 31.2 pg (27.0-32.0); MCHC 32.8 g/dL (32.0-37.0); MCV 95.1 FL (80.0-97.0); Monocytes # (A) 1.00 X 10*3/uL (0.20-1.00); Monocytes % (A) 9.8 %; NRBC Per 100 WBC 0 X 10*3/uL (0.00-0.01); Neutrophils # (A) 5.37 X 10*3/uL (1.80-7.70); Neutrophils % (A) 52.8 %; Platelet Count 368 X 10*3/uL (140-440); RBC 4.10 X 10*6/uL (4.10-5.20); RDW 15.3 % (11.5-14.5); WBC 10.17 X 10*3/uL (4.50-10.00)
== END | disposition home or self-care (01) ==
LOC: LABWHC1 13:28
PROVIDERS: ATTEND Internal Medicine Gastroenterology
DX: R19.7 Diarrhea, unspecified (principal); R10.30 Lower abdominal pain, unspecified
CPT/HCPCS: 36415; 80053; 85025; 87045; 87046; 87324; 87328; 87329